=== PATIENT | female | born 1995 | race Caucasian/White ===

== ENCOUNTER 2020-08-06 16:27 | Emergency (ER) | payer MEDICAID, SELFPAY ==
[2020-08-06 16:28] VITALS: BP 103/62; PULSE 106; RESP 18; TEMP 36.9; O2SAT 100; BMI 20.1
--- NOTE | 2020-08-06 18:24 | ED.VISSUMM ---
- ER Visit Summary Date of Service: 08/06/20 Chief Complaint: Nausea, vomiting and mild right lower sided abdominal pain. History of Present Illness: The patient is a 24 F 9 weeks G4, P2 Ab1. Patient states that she is having a lot of nausea and vomiting with this . She denies any dysuria. She had a prior ultrasound done at [facility] showing a single live IUP with a subchorionic bleed. She states she is not been able rating down today. She denies any fever. No diarrhea. She has mild right-sided abdominal pain. No dysuria. No fever. No vaginal bleeding. Physical Examination: Well-appearing young female. Vital signs are stable and afebrile. She does not look septic or toxic. She does not look significantly dehydrated. She does have mildly moist mucous membranes. HEENT exam otherwise unremarkable. Neck nontender. Lungs clear to auscultation bilateral. Heart regular rhythm rate about 105 no murmur. Abdomen soft nontender normal bowel sounds no peritoneal signs. There is really no McBurney's point or right upper quadrant tenderness. No signs of obstruction. Soft. Positive bowel sounds. Patient is moving all 4 extremities. Calves are nontender without edema. Neurologically she is awake alert with no focal motor deficits. Test Results: White count 7. Hemoglobin 13. No bands chemistries normal normal creatinine gap. Nurses were unable to obtain heart tones. Patient states that her OBs office has difficulty with that also. UA is positive for 10-25 white cells 2+ bacteria a culture will be sent. Should be treated for UTI. Repeat exam patient is doing well at 8:12 PM. She and I went over all of her test results. She will be given a dose of Keflex p.o. prior to discharge. Emergency Department Course and Treatment: Patient treated with IV fluids IV Zofran. Screening labs being obtained. Her abdominal exam is benign. Treatment Plan: Flex 500 mg 3 times daily for the next 10 days for UTI. Urine culture sent. Zofran as needed for nausea. Follow-up with your ACCOUNTING INTERN. Return if worse. Disposition: discharge Impression: First trimester with nausea and vomiting Abdominal pain Urinary tract infection This note was generated with Go Dishation software. It may contain incorrect words, spelling, and punctuation that were not noted in review of the chart prior to signing ED Disposition - Plan for ED Patient: Referrals: Care Physician,No Primary [Primary Care Provider] -
[2020-08-06] MEDS: 0.9% Normal Saline 1,000 ML 1000 ML IV (18:50)
[2020-08-06] MEDS: Ondansetron 4 MG/2 ML Vial IV (18:50)
[2020-08-06 18:55] LABS: Red Blood Cells-Urine 0 SEEN /hpf (0-5)
[2020-08-06 18:58] LABS: Absolute Lymphocyte Count 2.13 X10^3/uL (0.83-4.51); Absolute Neutrophil Count 4.6 X10^3/uL (2.0-7.7); Basophil# 0.03 X10^3/uL; Basophil% 0.4 % (0-1); Eosinophil# 0.02 X10^3/uL; Eosinophils% 0.3 % (0-5); Hematocrit 39.1 % (37-47); Hemoglobin 13.7 g/dL (12.0-15.0); Lymphocyte # 2.13 X10^3/ul (4.0); Lymphocyte % 28.5 % (19-41); Mean Corpuscular Hgb 31.1 pg (27.0-32.0); Mean Corpuscular Volume 88.9 fL (81-99); Mean Platelet Vol. 10.4 fl (6.2-12.0); Monocyte# 0.71 X10^3/uL; Monocyte% 9.5 % (0-10); NRBC Flagged by Analyzer 0 % (0-5); Neutrophil # 4.57 X10^3/uL (2.7-7.7); Platelet Count 261 K/mm3 (150-450); RBC Distribution Width CV 13.2 % (11.6-14.6); RBC Distribution Width SD 42.6 fl (35.1-43.9); White Blood Count 7.5 K/mm3 (4.4-11.0)
[2020-08-06 19:25] LABS: Color, Urine Yellow (Yellow); Glucose, Dipstick Normal (Normal); Ketone-Dipstick Negative (Negative); Leukocyte Esterase-Dipstick 500 /ul (Negative); Nitrite-Dipstick Negative (Negative); Occult Blood-Urine 10 /ul (Negative); Protein-Dipstick Negative (Negative); Specific Gravity, Urine 1.025 (1.002-1.030); Urine Bilirubin Dipstick Negative (Negative); Urine Clarity Clear (Clear); Urine Urobilinogen Normal (Normal)
[2020-08-06 19:30] LABS: Anion Gap 6 (5-15); BUN 11 mg/dL (7-18); BUN/Creat Ratio 16.9 RATIO (10-20); Calcium,Total 9.7 mg/dL (8.5-10.1); Chloride 105 mmol/L (98-107); Creatinine, Serum 0.65 mg/dL (0.55-1.02); EST Glomerular Filtration Rate 119 mL/min (>60); Est Glom Filt Rate - Afr Amer 144 mL/min (>60); Estimated Creatinine Clearance 106.03 ml/min; Glucose 85 mg/dL (74-106); Potassium 3.5 mmol/L (3.5-5.1); Sodium Level 139 mmol/L (136-145)
[2020-08-06 19:43] LABS: Bacteria 2+ /hpf (None Seen); Mucous, Urine 2+ /hpf (<or=2+); Squamous Epithelial Cells - UA 0-5 SEEN /hpf (5-10); White Blood Cells 10-25 SEEN /hpf (0-5)
[2020-08-06 19:54] VITALS: RESP 18
--- NOTE | 2020-08-06 20:18 | ED.DEP ---
ED Disposition - Plan for ED Patient: Disposition: Home or Assisted Living Instructions: ED Urinary Tract Infections in Women Prescriptions: Cephalexin [Keflex] 750 mg PO Q8 #30 cap Prescription Printed Ondansetron [Zofran Odt] 4 mg PO Q8H PRN PRN #10 tab PRN Reason: Nausea Prescription Printed Referrals: Care Physician,No Primary [Primary Care Provider] - 3-5 Days Additional Instructions: Follow-up with your PASTING MACHINE OFFBEARER this week. Plenty of fluids and rest. Zofran as needed for nausea. Keflex which is the antibiotic for your urinary tract infection 1 pill 3 times a day for 10 days. We also sent a urine culture which her OB can follow-up on those results.
[2020-08-06] MEDS: Cephalexin 250 MG Capsule 500 MG PO (20:25)
[2020-08-06 20:28] VITALS: BP 121/71; PULSE 76; RESP 17; O2SAT 100
== END 2020-08-06 20:29 | disposition home or self-care (01) ==
PROVIDERS: Emergency Provider Emergency Medicine
DX: O23.41 Unspecified infection of urinary tract in pregnancy, first trimester (principal); O21.9 Vomiting of pregnancy, unspecified; O26.891 Other specified pregnancy related conditions, first trimester; R10.9 Unspecified abdominal pain; Z3A.09 9 weeks gestation of pregnancy
CPT/HCPCS: 80048; 81001; 85025; 87086; 87088; 96361; 96374; 99284; J7030; J2405

== ENCOUNTER → 2020-08-14 | Outpatient (CLI) | payer MEDICAID, SELFPAY ==
[2020-08-14 11:25] VITALS: BMI 20.5
[2020-08-14 13:34] LABS: Amphetamine Urine VISTA NEGATIVE (<1000 ng/mL); Barbiturate Urine VISTA NEGATIVE (< 200 ng/mL); Benzodiazepine Urine VISTA NEGATIVE (< 200 ng/mL); Cocaine Urine VISTA NEGATIVE (< 300 ng/mL); Ecstacy Urine VISTA NEGATIVE (< 500 ng/mL); Methadone Urine VISTA NEGATIVE (< 300 ng/mL); PCP Urine VISTA NEGATIVE (< 25 ng/mL); THC Urine VISTA NEGATIVE (< 50 ng/mL); Vista UDS pH Range 6
== END | disposition home or self-care (01) ==
LOC: LABSPEC 13:00
PROVIDERS: Referring Provider Obstetrics & Gynecology; Visit Provider Obstetrics & Gynecology
DX: Z34.80 Encounter for supervision of other normal pregnancy, unspecified trimester (principal)
CPT/HCPCS: 80307

== ENCOUNTER → 2020-08-16 14:02 | Outpatient (CLI) | payer MEDICAID, SELFPAY ==
[2020-08-14 11:25] VITALS: BMI 20.5
== END ==
PROVIDERS: Referring Provider Obstetrics & Gynecology; Visit Provider Obstetrics & Gynecology
DX: Z34.81 Encounter for supervision of other normal pregnancy, first trimester (principal)
CPT/HCPCS: 36415

== ENCOUNTER → 2020-09-05 14:19 | Outpatient (CLI) | payer MEDICAID, SELFPAY ==
[2020-08-21 14:16] VITALS: BMI 20.1
[2020-09-05] MEDS: 0.9% NaCl Peripheral Flush Adult/Peds IV (14:45)
[2020-09-05] MEDS: Dextrose 5%-Lactated Ringers 1,000 ML 999 ML IV (14:47)
[2020-09-05] MEDS: Ondansetron 4 MG/2 ML Vial IV (14:47)
[2020-09-05 14:51] VITALS: BP 100/70; PULSE 97; RESP 16; TEMP 37.1; O2SAT 100; BMI 20.1
[2020-09-05 15:52] VITALS: BP 105/66; PULSE 109; RESP 16; O2SAT 100
== END ==
PROVIDERS: Referring Provider Obstetrics & Gynecology; Visit Provider Obstetrics & Gynecology
DX: E86.0 Dehydration (principal)
CPT/HCPCS: 96361; 96374; A4216; J2405

== ENCOUNTER → 2020-09-16 | Outpatient (CLI) | payer MEDICAID, SELFPAY ==
[2020-09-16 15:22] VITALS: BMI 20.3
== END | disposition home or self-care (01) ==
LOC: LABSPEC 16:56
PROVIDERS: Referring Provider Obstetrics & Gynecology; Visit Provider Obstetrics & Gynecology
DX: O23.40 Unspecified infection of urinary tract in pregnancy, unspecified trimester (principal); Z3A.00 Weeks of gestation of pregnancy not specified
CPT/HCPCS: 87077; 87086; 87088

== ENCOUNTER → 2020-10-18 14:03 | Outpatient (CLI) | payer MEDICAID, SELFPAY ==
[2020-10-18 11:32] VITALS: BMI 21.2
== END ==
PROVIDERS: Referring Provider Obstetrics & Gynecology; Visit Provider Obstetrics & Gynecology
DX: O23.40 Unspecified infection of urinary tract in pregnancy, unspecified trimester (principal); Z3A.00 Weeks of gestation of pregnancy not specified
CPT/HCPCS: 87086; 87088

== ENCOUNTER → 2020-12-27 14:09 | Outpatient (CLI) | payer MEDICAID, SELFPAY ==
[2020-12-13 15:19] VITALS: BMI 21.2
[2020-12-27 14:52] LABS: Absolute Lymphocyte Count 1.37 X10^3/uL (0.83-4.51); Absolute Neutrophil Count 5.7 X10^3/uL (2.0-7.7); Basophil# 0.02 X10^3/uL; Basophil% 0.3 % (0-1); Eosinophils% 1.3 % (0-5); Hematocrit 31.8 % (37-47); Hemoglobin 10.2 g/dL (12.0-15.0); Lymphocyte # 1.37 X10^3/ul (0.83-4.51); Lymphocyte % 17.4 % (19-41); Mean Corp Hgb Conc 32.1 g/dL (32-36); Mean Corpuscular Hgb 28.3 pg (27.0-32.0); Mean Corpuscular Volume 88.1 fL (81-99); Mean Platelet Vol. 10.6 fl (6.2-12.0); Monocyte# 0.58 X10^3/uL; Monocyte% 7.4 % (0-10); NRBC Flagged by Analyzer 0 % (0-5); Neutrophil # 5.66 X10^3/uL (2.7-7.7); Neutrophil % 71.9 % (47-70); Platelet Count 183 K/mm3 (150-450); RBC Distribution Width CV 14.1 % (11.6-14.6); RBC Distribution Width SD 44.8 fl (35.1-43.9); Red Blood Count 3.61 M/mm3 (4.2-5.4); White Blood Count 7.9 K/mm3 (4.4-11.0)
[2020-12-27 15:31] LABS: Glucose Challenge Gest 1H 50g 85 mg/dL (70-140)
== END ==
PROVIDERS: Referring Provider Obstetrics & Gynecology; Visit Provider Obstetrics & Gynecology
DX: O26.891 Other specified pregnancy related conditions, first trimester (principal); Z13.1 Encounter for screening for diabetes mellitus; Z3A.00 Weeks of gestation of pregnancy not specified
CPT/HCPCS: 36415; 82950; 85025; 86850; 86900; 86901

== ENCOUNTER → 2021-02-14 | Outpatient (CLI) | payer MEDICAID, SELFPAY | END | disposition home or self-care (01) | LOC: LABSPEC 17:03 | PROVIDERS: Referring Provider Obstetrics & Gynecology; Visit Provider Obstetrics & Gynecology | DX: Z34.80 Encounter for supervision of other normal pregnancy, unspecified trimester (principal) | CPT/HCPCS: 87081 ==

== ENCOUNTER → 2021-03-13 | Outpatient (CLI) | payer MEDICAID, SELFPAY | END | disposition home or self-care (01) | LOC: LABSPEC 13:21 | PROVIDERS: Referring Provider Obstetrics & Gynecology; Visit Provider Obstetrics & Gynecology | DX: Z34.80 Encounter for supervision of other normal pregnancy, unspecified trimester (principal); U07.1 COVID-19 | CPT/HCPCS: 87635; U0005; U0003 ==

== ENCOUNTER 2021-03-17 07:10 | Inpatient (IN) | payer MEDICAID, SELFPAY ==
[2021-03-17] VITALS (56 sets, daily range): BP systolic 105–127; BP diastolic 58–76; PULSE 81–125; RESP 16–18; TEMP 36.2–36.8; O2SAT 98–100; BMI 29.1
[2021-03-17] MEDS: Lactated Ringers 1,000 ML 50 ML IV (07:45)
[2021-03-17] MEDS: Oxytocin 30 units/NS 500 ml 30 UNITS/500 ML IV.SOLN IV (07:56)
[2021-03-17 08:15] LABS: Absolute Lymphocyte Count 0.97 X10^3/uL (0.83-4.51); Absolute Neutrophil Count 6.1 X10^3/uL (2.0-7.7); Basophil# 0.02 X10^3/uL; Basophil% 0.2 % (0-1); Eosinophil# 0.18 X10^3/uL; Eosinophils% 2.2 % (0-5); Hematocrit 28.4 % (37-47); Hemoglobin 8.6 g/dL (12.0-15.0); Lymphocyte # 0.97 X10^3/ul (0.83-4.51); Lymphocyte % 11.7 % (19-41); Mean Corp Hgb Conc 30.3 g/dL (32-36); Mean Corpuscular Hgb 23.8 pg (27.0-32.0); Mean Corpuscular Volume 78.7 fL (81-99); Mean Platelet Vol. 10.3 fl (6.2-12.0); Monocyte# 0.87 X10^3/uL; Monocyte% 10.5 % (0-10); NRBC Flagged by Analyzer 0 % (0-5); Neutrophil # 6.08 X10^3/uL (2.7-7.7); Neutrophil % 73.6 % (47-70); Platelet Count 148 K/mm3 (150-450); RBC Distribution Width CV 16.4 % (11.6-14.6); RBC Distribution Width SD 46.7 fl (35.1-43.9); Red Blood Count 3.61 M/mm3 (4.2-5.4); White Blood Count 8.3 K/mm3 (4.4-11.0)
[2021-03-17] MEDS: fentaNYL 100 MCG/2 ML Ampul IV (11:17)
--- NOTE | 2021-03-17 11:48 | HP.PCM.OB_ITS ---
HPI - General General Date of Admission: 03/17/21 HPI Narrative ANJALI PIPER, is a 25 F who presents for IOL secondary to postdates, favorable cervix. she had a positive covid test last and does recall mild symptoms starting mid week (march 05) the week prior of headaches and nasal congestion. Maternal Data Information ARON Calculator Estimated Delivery Date Method Current WG Current Estimate 03/14/21 LMP (Certain) 40w 3d PFSH PFSH Medical History Anemia affecting Genital herpes affecting Home Medications docosahexaenoic acid 200 mg capsule 1 mg PO DAILY 08/14/20 [History Last Taken 03/15/21 22:00 1 tab] valacyclovir [Valtrex] 500 mg PO BID 03/17/21 [History Last Taken 03/16/21 22:00 500 mg] Allergy/AdvReac Type Severity Reaction Status Date / Time No Known Allergies Allergy Verified 03/13/21 11:21 Surgical History S/P left knee surgery Social History Smoking Status: Never smoker alcohol intake: never substance use type: does not use caffeine: Yes additional social history: - Terell-Works at [employer] Patient is stay at home mom History 4 Elective abortions Hx Para 2 Spontaneous abortions 1 Hx # Term Pregnancies Ectopic pregnancies Hx # Pregnancies Multiple births # of living children 2 Past Pregnancies Del. Date Name GA/Weeks Outcome Route Bth Weight Infant Gen Labor Lgth Anesthesia Del Locatn Provider FOB Unknown 2016 5 01/13/18 Cat 41 live - full term 7lbs 15.7oz Female epidural [place] Figueredo 02/20/19 Solomonaya 39 live - full term 8lbs 3.4oz [facility] Dr. Marina Figueredo Delivery Date: No notes to display Delivery Date: 01/13/18 No notes to display Delivery Date: 02/20/19 cord around neck with compression, anemic Anjali Castillo Visit Details Expected Delivery Route/Plan consider IOL at 39-40 with PPTL scheduled next day. Labor Preferences- labor support person: terell labor intervention preferences: pain management options preferred: Epidural cut cord/dad catch: yes : yes PP control planned: PPBTL - T19 12/27 discussed possible routes of delivery and associated risks: [] special requests: [] Plans covid vaccine: non immune counseled regarding risk of covid in vs vaccination and declined vaccination flu vaccine: declined tdap vaccine: declined rhogam: na LARC form signed: 12/27 movement and labor precautions reviewed. Problem list reviewed and updated with the most current plan of care details and appropriate orders placed. Relevant counseling for the gestational age provided. Continue routine care and follow up unless otherwise noted in visit notes/problem list details OB Flowsheet Initial Weight: 112 lb Date -?-?-?-?-?-?-?-?-?-?-?-?- EGA Weight BP Urine Prot -?-?-?-?-?-?-?-?-?-?-?-?- Glucose FHR FuHt Pres Dilation -?-?-?-?-?-?-?-?-?-?-?-?- Effaced St Visit Note 08/14/20 -?-?-?-?-?-?-?-?-?-?-?-?- 9w 5d 112 lb (+0 oz) 114/68 Negative -?-?-?-?-?-?-?-?-?-?-?-?- Negative 180 -?-?-?-?-?-?-?-?-?-?-?-?- GP - GERARD from [facility]. Dated by prior US. Having significant nausea - refill for zofran sent to pharmacy. 08/21/20 -?-?-?-?-?-?-?-?-?-?-?-?- 10w 5d 110 lb 2 oz (-1 lb 14 oz) 102/50 Negative -?-?-?-?-?-?-?-?-?-?-?-?- Negative 185 -?-?-?-?-?-?-?-?-?-?-?-?- GP - no cramping or bleeding. UCHE resolved. 09/16/20 -?-?-?-?-?-?-?-?-?-?-?-?- 14w 3d 111 lb 6 oz (-10 oz) 114/60 Negative -?-?-?-?-?-?-?-?-?-?-?-?- Negative 165 -?-?-?-?-?-?-?-?-?-?-?-?- SM- no vb crampi ng, nausea better 10/18/20 -?-?-?-?-?-?-?-?-?-?-?-?- 19w 0d 116 lb 6 oz (+4 lb 6 oz) 98/60 Negative -?-?--?-?-?-?-?-?-?-?-?-?- Negative 160 -?-?-?-?-?-?-?-?-?-?-?-?- GP - no ctx, LOF , VB, DFM. Anatomy scan next week 11/12/20 -?-?-?-?-?-?-?-?-?-?-?-?- 22w 4d 126 lb 4 oz (+14 lb 4 oz) 98/60 Negative -?-?-?-?-?-?-?-?-?-?-?-?- Negative 148 -?-?-?-?-?-?-?-?-?-?-?-?- MH-No VB, LOF. G ood FM. Reviewed nl anatomy scan. 12/13/20 -?-?-?-?-?-?-?-?-?-?-?-?- 27w 0d 135 lb (+23 lb) 100/56 Negative -?-?-?-?-?-?-?-?-?-?-?-?- Negative 150 27 -?-?-?-?-?-?-?-?-?-?-?-?- GP - no LOF, VB, DFM, ctx. GCT and rhogam next visit 12/27/20 -?-?-?-?-?-?-?-?-?-?-?-?- 29w 0d 138 lb 8 oz (+26 lb 8 oz) 110/70 Negative -?-?-?-?-?-?-?-?-?-?-?-?- Negative 145 29 -?-?-?-?-?-?-?-?-?-?-?-?- GP - no LOF, VB, DFM, ctx. Discussed PPBTL. T19 signed. GP - no LOF, VB, DFM, ctx. D iscussed PPBTL. T19 signed. 3rd [facility] labs nl 01/10/21 -?-?-?-?-?-?-?-?-?-?-?-?- 31w 0d 143 lb (+31 lb) 102/54 Negative -?-?-?-?-?-?-?-?-?-?-?-?- Negative 150 31 -?-?-?-?-?-?-?-?-?-?-?-?- GP - no LOF, VB, DFM, ctx. Denies complaints. 01/24/21 -?-?-?-?-?-?-?-?-?-?-?-?- 33w 0d 146 lb (+34 lb) 120/78 Negative -?-?-?-?-?-?-?-?-?-?-?-?- Negative 135 33 Cephalic -?-?-?-?-?-?-?-?-?-?-?-?- SM- no vb lof go od fm no reulga rctx 02/07/21 -?-?-?-?-?-?-?-?-?-?-?-?- 35w 0d 149 lb (+37 lb) 104/62 Negative -?-?-?-?-?-?-?-?-?-?-?-?- Negative 135 35 Cephalic -?-?-?-?-?-?-?-?-?-?-?-?- SM- no vb lof go od fm no reuglar ctx 02/14/21 -?-?-?-?-?-?-?-?-?-?-?-?- 36w 0d 151 lb (+39 lb) 100/60 Negative -?-?-?-?-?-?-?-?-?-?-?-?- Negative 140 36 Cephalic 2 -?-?-?-?-?-?-?-?-?-?-?-?- 50 -3 GP - no LO F, VB, DFM, regular ctx. GBS done today. 02/20/21 -?-?-?-?-?-?-?-?-?-?-?-?- 36w 6d 154 lb 4 oz (+42 lb 4 oz) 120/70 Negative -?-?-?-?-?-?-?-?-?-?-?-?- Negative 140 37 Cephalic 2 -?-?-?-?-?-?-?-?-?-?-?-?- 50 -3 GP - no LO F, VB, ctx. Reports DFM last 24h - NST done in office and is reactive 02/27/21 -?-?-?-?-?-?-?-?-?-?-?-?- 37w 6d 156 lb 6 oz (+44 lb 6 oz) 110/60 Negative -?-?-?--?-?-?-?-?-?-?-?-?- Negative 140 38 Cephalic 2 -?-?-?-?-?-?-?-?-?-?-?-?- SM- no vb lof go od fm no regular ctx feels pelvic pressure 03/03/21 -?-?-?--?-?-?-?-?-?-?-?-?- 38w 3d 159 lb (+47 lb) 104/70 Negative -?-?-?-?-?-?-?-?-?-?-?-?- Negative 140 38 Cephalic 2 -?-?-?-?-?-?-?-?-?-?-?--?- SM- no vb lof go od fm n oregular ctx, repeat cervical exam next week and consider IOL if favorable smith score 03/13/21 -?-?-?-?-?-?-?-?-?-?-?-?- 39w 6d 160 lb 6 oz (+48 lb 6 oz) 120/86 Negative -?-?-?-?-?-?-?-?-?-?-?-?- Negative 140 40 Cephalic 2 -?-?-?-?-?-?-?-?-?-?-?-?- 50 -2 GP - no LO F, VB, DFM, ctx. IOL scheduled for 03/1703/17/21 -?-?-?-?-?-?-?-?-?-?-?-?- 40w 3d 159 lb 6.307 oz (+47 lb 6.307 oz) -?-?-?-?--?-?-?-?-?-?-?-?- -?-?-?-?-?-?-?-?-?-?-?-?- Vital Signs Vital Signs Vital Signs: Weight Weight: 159 lb 6.307 oz Body Mass Index (BMI) 29.1 Labs Labs Labs: Blood Type O NEGATIVE Antibody Screen NEGATIVE Hct 28.4 % (37-47) L Hgb 8.6 g/dL (12.0-15.0) L Glucose 1 Hr 50 gm 85 mg/dL (70-140) Miscellaneous Test Assessment & Plan (1) Sterilization: COMMENT: titel 19 signed, consider IOL 39-40 week with PPTL scheduled the next day (2) Anemia affecting : COMMENT: iron added (3) UTI (urinary tract infection), affecting care of mother, antepartum: COMMENT: Treated with Cephalexin, repeat culture neg (4) Rh negative status during : QUALIFIERS: Trimester: first trimester Qualified Code(s): O26.891 - Other specified related conditions, first trimester COMMENT: O neg- Rhogam PRN and at 28 weeks. Given 12/27 (5) Genital herpes affecting : QUALIFIERS: Trimester: first trimester Qualified Code(s): O98.311 - Other infections with a predominantly sexual mode of transmission complicating , first trimester COMMENT: prophylaxis being given (6) Supervision of other normal : COMMENT: PRR; ARON: 03/14/21, Austin motley PC: Mireya Shelton (7) : QUALIFIERS: Weeks of gestation: 39 weeks Qualified Code(s): Z3A.39 - 39 weeks gestation of COMMENT: GBS negative, genetics- low risk and carrier- negative in previous , 10/21 anatomy PLAN: Patient presents IOL, plan management for with pitocin/AROM. Pain management: plans epidural. GBS negative. Management of any complications: discussed previous covid positive test. due to mild symptoms that started march 05, she is out of quarantine as of 03/15. no new symptoms. I have reviewed the [facility] and made any clinically relevant updates.
--- NOTE | 2021-03-17 11:48 | PCM.HP.OB ---
HPI - General General Date of Admission: 03/17/21 HPI Narrative ANJALI PIPER, is a 25 F who presents for IOL secondary to postdates, favorable cervix. she had a positive covid test last and does recall mild symptoms starting mid week (march 05) the week prior of headaches and nasal congestion. Maternal Data Information ARON Calculator Estimated Delivery Date Method Current WG Current Estimate 03/14/21 LMP (Certain) 40w 3d PFSH PFSH Medical History Anemia affecting Genital herpes affecting Home Medications docosahexaenoic acid 200 mg capsule 1 mg PO DAILY 08/14/20 [History Last Taken 03/15/21 22:00 1 tab] valacyclovir [Valtrex] 500 mg PO BID 03/17/21 [History Last Taken 03/16/21 22:00 500 mg] Allergy/AdvReac Type Severity Reaction Status Date / Time No Known Allergies Allergy Verified 03/13/21 11:21 Surgical History S/P left knee surgery Social History Smoking Status: Never smoker alcohol intake: never substance use type: does not use caffeine: Yes additional social history: - Terell-Works at [employer] Patient is stay at home mom History 4 Elective abortions Hx Para 2 Spontaneous abortions 1 Hx # Term Pregnancies Ectopic pregnancies Hx # Pregnancies Multiple births # of living children 2 Past Pregnancies Del. Date Name GA/Weeks Outcome Route Bth Weight Infant Gen Labor Lgth Anesthesia Del Locatn Provider FOB Unknown 2016 5 01/13/18 Cat 41 live - full term 7lbs 15.7oz [place] 02/20/19 Solomonaya 39 live - full term 8lbs 3.4oz [place] [facility] Dr. Marina Figueredo Delivery Date: No notes to display Delivery Date: 01/13/18 No notes to display Delivery Date: 02/20/19 cord around neck with compression, anemic Anjali Castillo Visit Details Expected Delivery Route/Plan consider IOL at 39-40 with PPTL scheduled next day. Labor Preferences- labor support person: terell labor intervention preferences: pain management options preferred: Epidural cut cord/dad catch: yes : yes PP control planned: PPBTL - T19 12/27 discussed possible routes of delivery and associated risks: [] special requests: [] Plans covid vaccine: non immune counseled regarding risk of covid in vs vaccination and declined vaccination flu vaccine: declined tdap vaccine: declined rhogam: na LARC form signed: 12/27 movement and labor precautions reviewed. Problem list reviewed and updated with the most current plan of care details and appropriate orders placed. Relevant counseling for the gestational age provided. Continue routine care and follow up unless otherwise noted in visit notes/problem list details OB Flowsheet Initial Weight: 112 lb Date <del>?</del> EGA Weight BP Urine Prot <del>?</del> Glucose FHR FuHt Pres Dilation <del>?</del> Effaced St Visit Note 08/14/20 <del>?</del> 9w 5d 112 lb (+0 oz) 114/68 Negative <del>?</del> Negative 180 <del>?</del> GP - [facility]ER[facility] Dated by prior US. Having significant nausea - refill for zofran sent to pharmacy. 08/21/20 <del>?</del> 10w 5d 110 lb 2 oz (-1 lb 14 oz) 102/50 Negative <del>?</del> Negative 185 <del>?</del> GP - no cramping or bleeding. UCHE resolved. 09/16/20 <del>?</del> 14w 3d 111 lb 6 oz (-10 oz) 114/60 Negative <del>?</del> Negative 165 <del>?</del> SM- no vb cramping, nausea better 10/18/20 <del>?</del> 19w 0d 116 lb 6 oz (+4 lb 6 oz) 98/60 Negative <del>?</del> Negative 160 <del>?</del> GP - no ctx, LOF, VB, DFM. Anatomy scan next week 11/12/20 <del>?</del> 22w 4d 126 lb 4 oz (+14 lb 4 oz) 98/60 Negative <del>?</del> Negative 148 <del>?</del> MH-No VB, LOF. Good FM. Reviewed nl anatomy scan. 12/13/20 <del>?</del> 27w 0d 135 lb (+23 lb) 100/56 Negative <del>?</del> Negative 150 27 <del>?</del> GP - no LOF, VB, DFM, ctx. GCT and rhogam next visit 12/27/20 <del>?</del> 29w 0d 138 lb 8 oz (+26 lb 8 oz) 110/70 Negative <del>?</del> Negative 145 29 <del>?</del> GP - no LOF, VB, DFM, ctx. Discussed PPBTL. T19 signed. GP - no LOF, VB, DFM, ctx. Discussed PPBTL. T19 signed. 3rd tri labs nl 01/10/21 <del>?</del> 31w 0d 143 lb (+31 lb) 102/54 Negative <del>?</del> Negative 150 31 <del>?</del> GP - no LOF, VB, DFM, ctx. Denies complaints. 01/24/21 <del>?</del> 33w 0d 146 lb (+34 lb) 120/78 Negative <del>?</del> Negative 135 33 Cephalic <del>?</del> SM- no vb lof good fm no reulga rctx 02/07/21 <del>?</del> 35w 0d 149 lb (+37 lb) 104/62 Negative <del>?</del> Negative 135 35 Cephalic <del>?</del> SM- no vb lof good fm no reuglar ctx 02/14/21 <del>?</del> 36w 0d 151 lb (+39 lb) 100/60 Negative <del>?</del> Negative 140 36 Cephalic 2 <del>?</del> 50 -3 GP - no LOF, VB, DFM, regular ctx. GBS done today. 02/20/21 <del>?</del> 36w 6d 154 lb 4 oz (+42 lb 4 oz) 120/70 Negative <del>?</del> Negative 140 37 Cephalic 2 <del>?</del> 50 -3 GP - no LOF, VB, ctx. Reports DFM last 24h - NST done in office and is reactive 02/27/21 <del>?</del> 37w 6d 156 lb 6 oz (+44 lb 6 oz) 110/60 Negative <del>?</del> Negative 140 38 Cephalic 2 <del>?</del> SM- no vb lof good fm no regular ctx feels pelvic pressure 03/03/21 <del>?</del> 38w 3d 159 lb (+47 lb) 104/70 Negative <del>?</del> Negative 140 38 Cephalic 2 <del>?</del> SM- no vb lof good fm n oregular ctx, repeat cervical exam next week and consider IOL if favorable smith score 03/13/21 <del>?</del> 39w 6d 160 lb 6 oz (+48 lb 6 oz) 120/86 Negative <del>?</del> Negative 140 40 Cephalic 2 <del>?</del> 50 -2 GP - no LOF, VB, DFM, ctx. IOL scheduled for 03/1703/17/21 <del>?</del> 40w 3d 159 lb 6.307 oz (+47 lb 6.307 oz) <del>?</del> <del>?</del> Vital Signs Vital Signs Vital Signs: Weight Weight: 159 lb 6.307 oz Body Mass Index (BMI) 29.1 Labs Labs Labs: Blood Type O NEGATIVE Antibody Screen NEGATIVE Hct 28.4 % (37-47) L Hgb 8.6 g/dL (12.0-15.0) L Glucose 1 Hr 50 gm 85 mg/dL (70-140) Miscellaneous Test Assessment & Plan (1) Sterilization: COMMENT: amilcar 19 signed, consider IOL 39-40 week with PPTL scheduled the next day (2) Anemia affecting : COMMENT: iron added (3) UTI (urinary tract infection), affecting care of mother, antepartum: COMMENT: Treated with Cephalexin, repeat culture neg (4) Rh negative status during : QUALIFIERS: Trimester: first trimester Qualified Code(s): O26.891 - Other specified related conditions, first trimester COMMENT: O neg- Rhogam PRN and at 28 weeks. Given 12/27 (5) Genital herpes affecting : QUALIFIERS: Trimester: first trimester Qualified Code(s): O98.311 - Other infections with a predominantly sexual mode of transmission complicating , first trimester COMMENT: prophylaxis being given (6) Supervision of other normal : COMMENT: PRR; ARON: 03/14/21, [place] PC: Mireya Shelton (7) : QUALIFIERS: Weeks of gestation: 39 weeks Qualified Code(s): Z3A.39 - 39 weeks gestation of COMMENT: GBS negative, genetics- low risk and carrier- negative in previous , 10/21 anatomy PLAN: Patient presents IOL, plan management for with pitocin/AROM. Pain management: plans epidural. GBS negative. Management of any complications: discussed previous covid positive test. due to mild symptoms that started march 05, she is out of quarantine as of 03/15. no new symptoms. I have reviewed the [facility] and made any clinically relevant updates.
[2021-03-17] MEDS: Lactated Ringers 500 ML 999 ML IV ×2 (12:12→13:00)
[2021-03-17] MEDS: fentaNYL-bupivacaine (epidural) 100 ML BAG EPIDURAL (13:05)
[2021-03-17] MEDS: Oxytocin 30 units/NS 500 ml 30 UNITS/500 ML IV.SOLN 334 UNITS IV (17:11)
[2021-03-17] MEDS: Methylergonovine 0.2 MG/ML Ampul IM (17:18)
--- NOTE | 2021-03-17 17:21 | OP.PCM_ITS ---
Assessment & Plan (1) Anemia affecting : COMMENT: iron added (2) UTI (urinary tract infection), affecting care of mother, antepartum: COMMENT: Treated with Cephalexin, repeat culture neg (3) Rh negative status during : QUALIFIERS: Trimester: first trimester Qualified Code(s): O26.891 - Other specified related conditions, first trimester COMMENT: O neg- Rhogam PRN and at 28 weeks. Given 12/27 (4) Genital herpes affecting : QUALIFIERS: Trimester: first trimester Qualified Code(s): O98.311 - Other infections with a predominantly sexual mode of transmission complicating , first trimester COMMENT: prophylaxis being given (5) Supervision of other normal : COMMENT: PRR; ARON: 03/14/21, Austin motley PC: Mireya Shelton (6) : QUALIFIERS: Weeks of gestation: 39 weeks Qualified Code(s): Z3A.39 - 39 weeks gestation of COMMENT: GBS negative, genetics- low risk and carrier- negative in previous , 10/21 nl anatomy (7) Vaginal delivery: COMMENT: IOL SM severe shoulder dystocia tiesha Avila (8) Shoulder dystocia during labor and delivery: COMMENT: 90 secs, mc hill, suprapubic, woodscrew, suprapubic, delivery posterior arm (left arm) Maternal Data Information ARON Calculator Estimated Delivery Date Method Current WG Current Estimate 03/14/21 LMP (Certain) 40w 3d Vaginal Delivery Maternal Presentation Maternal Presentation: Elective Induction (postdates, favorable cervix, plan PPTL the next day) Maternal Presentation: 25-year-old at 40 weeks 3 days presents for induction of labor secondary to postdates and maternal request. Patient desires sterilization the next day. Type of Induction: Pitocin Operative Information Date of Procedure: 03/17/21 Pre-Operative Diagnosis: Induction of labor, postdates Post-Operative Diagnosis: Same Surgery / Procedure Performed: Spontaneous Vaginal Delivery Type of Anesthesia: Epidural Drain: [place] to straight drain Estimated Blood Loss: 300 Fluids Replaced: Crystalloid Findings Description of Procedure: Patient was found to be completely dilated and +2 station. Patient pushed with 1 contraction in the head precipitously delivered to the nose and then with an additional push delivered all the way. Nares and mouth were suctioned and a tight nuchal cord x1 was encountered but unable to be loosened or reduced. Gentle downward traction on the head with the left shoulder being anterior was performed and it was found that a shoulder dystocia was encountered. Cristin maneuver was performed followed by suprapubic. This was unsuccessful and therefore manual rotation of the right shoulder to the anterior via wood screw and then suprapubic and Cristin were repeated to attempt to reduce the right shoulder that was now anterior. The nuchal cord was loosened up a little bit more but still unable to be reduced over or through but the shoulders were felt to be the rate limiting factor. The left posterior arm was attempted to be swept anteriorly but there was not enough room and full extension of the arm to be able to reduce it and deliver it. Bilateral index fingers were placed in the axilla of the left arm that was posterior and outward and downward traction was applied to deliver the posterior shoulder which was successful but an audible pop was heard. After this the left arm was able to be swept out and delivered and the tight nuchal cord was clamped and cut on the perineum and the rest of the infant was delivered onto the abdomen. total duration was 90 seconds. Presentation: SEB Amniotic Membrane Rupture Type: Artificial Amniotic Fluid Description: Clear Placental Delivery Description: Spontaneous Placenta Disposition: [facility] Cord Entanglement: Around neck x 1, tight (cut on perineum after delivery of posterior arm) Nuchal Cord Compression: With compression Cord Gases: ABG and VBG Infant A Gender: Male Delayed Cord Clamping: No Post Vaginal Delivery Medications Given After Delivery: IV Pitocin and IM Methergin Episiotomy Description: None Laceration: None Complication Complications: - (severe shoulder dystocia) Procedures Urinary/Genital [id number]: [id number] Vaginal Delivery+ Care([facility])
[2021-03-17] MEDS: Acetaminophen 500 MG Tablet 1000 MG PO (20:50)
--- NOTE | 2021-03-17 23:25 | NURSING ---
pt reporting severe discomfort to epidural site. dressing remains dry and intact. site tender upon palpation. pt also reporting shooting pain into lower back, tylenol ineffective and pt declined naproxen. Brenden BEARDEN called and updated on findings and made aware epidural was left in place due to scheduled tubal tomorrow in main OR around 3:45pm. Plan per Brenden CLEANING SUPERVISOR is for RN to d/c epidural cath and he will update surgery team tomorrow plan of care reviewed with pt and fob. pt agreeable to removing epidural catheter at this time. pt stated i may cancel the procedure tomorrow if im still this uncomfortable epidural cath removed with blue tip intact. pt tolerated well
--- NOTE | 2021-03-17 23:33 | NURSING ---
pt reporting pain to abd. fundus noted to be firm at U but displaced to the left. pt denies feeling urge to void. lochia small. bladder scanner used, approximated 408 cc. pt assisted up to restroom voided 200cc with out difficulty. pt then returned to bed, fundus firm at U and midline. lochia small. pt reports feeling better after urinating. denies further needs
[2021-03-18] VITALS (8 sets, daily range): BP systolic 97–119; BP diastolic 61–69; PULSE 74–90; RESP 16–18; TEMP 36.1–37; O2SAT 99
[2021-03-18] MEDS: Benzocaine/Lanolin/Aloe Vera 1 SPRAY EACH TOPICAL (00:39)
[2021-03-18] MEDS: Naproxen 500 MG Tablet PO ×2 (00:39→08:37)
[2021-03-18] MEDS: Acetaminophen 500 MG Tablet 1000 MG PO ×2 (04:09→14:21)
--- NOTE | 2021-03-18 09:03 | PCM.DC ---
Discharge Instructions Diet Discharge Diet: No restrictions Activity Discharge Activity: Return to Normal Activity, May Not Drive (while taking narcotic pain medications.) and May Shower May resume sexual activity in: 4-6 weeks Dressing / Incision Call your doctor if your incision/area has: Continuous Slow Oozing, Sudden Increased Bleeding, Increased Pain/ Swelling, Increased Redness and Foul Smelling Discharge Follow Up Care Please Follow Up With: Ana Argueta MD When: Call [phone] to make an appointment with your doctor in 6 weeks. If you had elevated blood pressure or 4th degree laceration, you will need to be seen in 2 weeks. Test Results: Test results from this visit will be discussed in further detail at your follow-up appointment, if applicable. Discharge Plan Admission Admit Date/Time: 03/17/21 07:10 Primary Reason for Your Visit: vaginal delivery Attending Provider: Ana Argueta Primary Care Provider: Care Physician,No Primary Discharge Orders/Prescriptions Prescriptions: New oxycodone-acetaminophen [Endocet] 5-325 mg tablet 1 tab PO Q4H PRN (Reason: pain) 7 Days Qty: 20 RF: 0 ibuprofen [ibuprofen] 600 MG tablet 600 mg PO Q6H PRN PRN (Reason: pain) Qty: 30 RF: 0 Continued DHA 200 mg capsule 1 mg PO DAILY RF: 0 valacyclovir [Valtrex] 500 mg tablet 500 mg PO BID RF: 0 Referrals / Follow Up: Care Physician,No Primary [Primary Care Provider] -
--- NOTE | 2021-03-18 09:20 | PCM.PN.OB ---
Subjective Subjective Patient doing well without complaints. Tolerating PO. Ambulating and voiding without difficulty. feeding well. Denies chest pain, shortness of breath, calf pain/swelling, fevers, chills, lightheadedness. co lower pelvic pain and back pain Objective Data Objective Data Vital Signs: Vital Signs Temp Pulse Resp BP Pulse Ox 97.1 F L 82 18 119/69 99 03/18/21 07:50 03/18/21 07:50 03/18/21 07:50 03/18/21 07:50 03/18/21 07:50 Oxygen Delivery Method Room Air Weight: 159 lb 6.307 oz Body Mass Index (BMI) 29.1 Intake & Output: Intake and Output for Last 24 Hours 03/16/21 03/17/21 03/18/21 23:59 23:59 23:59 Intake Total 3000.86 / 3000.86 Output Total 1000 / 1000 Balance 2000.86 / 2000.86 Lab / Micro Data Result Diagrams: 03/17/21 07:45 Labs: Laboratory Results - last 24 hr 03/17/21 07:45: Blood Type O NEGATIVE, Antibody Screen NEGATIVE 03/17/21 20:00: Screen NEGATIVE, Baby's Blood Type O POSITIVE, Baby's JARVIS NEGATIVE ROS Constitutional Constitutional: Reports systems reviewed and no addt'l complaints, except as documented Cardiovascular Cardiovascular: Reports systems reviewed and no addt'l complaints, except as documented Respiratory/Chest Respiratory/Chest: Reports systems reviewed and no addt'l complaints, except as documented Gastrointestinal Gastrointestinal: Reports systems reviewed and no addt'l complaints, except as documented Physical Exam Const alert, oriented x3 and no apparent distress HEENT Head and Scalp: atraumatic Resp normal respiratory effort GI soft to palpation and non-tender Bimanual Exam - Vag & Uterus: uterus non-tender Uterus Palpation: uterus fundus firm (below Umbilicus) Assessment & Plan (1) Vaginal delivery: COMMENT: IOL SM severe shoulder dystocia humeral fracture 9lb 3 oz boy [place] (2) Shoulder dystocia during labor and delivery: COMMENT: 90 secs, [place], suprapubic, [place], suprapubic, delivery posterior arm (left arm) (3) Sterilization: COMMENT: amilcar 19 signed, plan laparosocpic BS 6+ weeks (4) Rh negative status during : QUALIFIERS: Trimester: first trimester Qualified Code(s): O26.891 - Other specified related conditions, first trimester COMMENT: O neg- Rhogam PRN and at 28 weeks. Given 12/27 PLAN: s/p PPD # 1 1. routine post delivery care 2. breast feeding- support given 3. rh negative- rhogam PRN 4. rubella immune 5. severe shoulder dystocia- infant with humeral fracture, was 1 lb larger than last delivery. discussed that if any future deliveries recommend . patient still requesting sterilization but wants to wait until 6 weeks . support and information given.
== END 2021-03-18 17:55 | disposition home or self-care (01) | DRG 560 ==
PROVIDERS: Admitting Provider Obstetrics & Gynecology; Visit Provider Obstetrics & Gynecology
DX: O48.0 Post-term pregnancy (principal); Z37.0 Single live birth; O98.32 Other infections with a predominantly sexual mode of transmission complicating childbirth; A60.00 Herpesviral infection of urogenital system, unspecified; Z3A.40 40 weeks gestation of pregnancy; Z79.899 Other long term (current) drug therapy; O99.02 Anemia complicating childbirth; D64.9 Anemia, unspecified; Z86.16 Personal history of COVID-19; O69.1XX0 Labor and delivery complicated by cord around neck, with compression, not applicable or unspecified; O62.3 Precipitate labor; O66.0 Obstructed labor due to shoulder dystocia
CPT/HCPCS: 59025; 59050; 85025; 85461; 86850; 86900; 86901; 90384; 99218; J7120; G0378; J2790

== ENCOUNTER → 2021-05-01 | Outpatient (CLI) | payer MEDICAID, SELFPAY ==
[2021-05-06 12:45] LABS: HPV Reflexed? NOT INDICATED
== END | disposition home or self-care (01) ==
LOC: LABSPEC 16:39
PROVIDERS: Referring Provider Obstetrics & Gynecology; Visit Provider Obstetrics & Gynecology
DX: Z12.4 Encounter for screening for malignant neoplasm of cervix (principal)
CPT/HCPCS: 88175; G0145

== ENCOUNTER 2022-06-22 10:36 | Emergency (ER) | payer MEDICAID, SELFPAY ==
[2022-06-22 10:38] VITALS: BP 117/79; PULSE 130; RESP 17; TEMP 35.4; O2SAT 99; BMI 21.0
[2022-06-22] MEDS: Mag Hydrox/Al Hydrox/Simeth 30 ML UDC PO (11:51)
--- NOTE | 2022-06-22 12:19 | ED.VIS.GI ---
HPI HPI - GI History of Present Illness Chief Complaint: Abd Pain Detail of Chief Complaint: Epigastric pain and other symptoms Informant: patient Abdominal Pain/Flank Pain Onset: Days Timing: Intermittent Quality: Aching and - (Pressure sensation epigastric area radiating into the chest) Location: Epigastric Current Severity: Mild Maximum Severity: Moderate Worsened by: - (Worse when her son lies on her when she breast-feeds) Relieved by: Nothing Nausea/Vomiting/Emesis GI Symptom: Negative for Nausea or Vomiting Diarrhea/Melena/Hematochezia GI Symptom: Negative for Diarrhea, Melena or Hematochezia Associated Symptoms Associated Symptoms: Negative for Dysuria, Frequency, Hematuria or Urgency LMP: 3 weeks ago. Narrative Narrative: Patient is 86-year-old who is on control. She is presently on the iron pills. She denies history of VTE. Denies leg pain, swelling discoloration. She does complain of numbness, shortness of breath, discomfort in the epigastric and chest and stiffness of her fingers. She states the pain in her abdomen is worse when her son lies on her. She denies burning sensation in her chest. She denies sour eructation. She denies intolerance to greasy or fried foods. There is a family history of cholelithiasis. She denies radiation of the pain to her back. Patient denies headache, visual, ocular auditory symptoms. Patient denies vomiting or diarrhea. Patient denies black or maroon-colored stool. Patient denies change in color, consistency or caliber of her stool. Patient denies gynecologic or urologic symptoms. She has had 3 pregnancies. She states she had complication with delivery of one of her children. Prior similar symptoms: No Recent Illness/Hospitalization: No [facility] Medical History Anemia affecting Genital herpes affecting Physical exam, pre-employment Vaginal delivery Home Medications norethindrone (contraceptive) 0.35 mg tablet (Ortho Micronor) 0.35 mg PO DAILY #28 tabs 05/01/21 [Rx Last Taken Unknown] omeprazole 40 mg capsule,delayed release 40 mg PO DAILY #30 caps 06/22/22 [Rx Last Taken Unknown] Allergy/AdvReac Type Severity Reaction Status Date / Time No Known Allergies Allergy Verified 06/22/22 10:37 Family History (Updated 06/22/22 @ 14:[address] Ramón Alfonso MD) Mother Cholelithiasis Surgical History S/P left knee surgery Social History (Updated 06/22/22 @ 14:[address] Ramón Alfonso MD) household members: children Smoking Status: Never smoker alcohol intake: never substance use type: does not use caffeine: Yes additional social history: - [employer]-Works at [employer] Patient is stay at home mom ROS ROS ED Constitutional Constitutional ED: Denies chills, fever(s), subjective, sweats or weight loss ENT ENT ED: Denies ear pain, rhinorrhea or sore throat Cardiovascular Cardiovascular: Reports chest pain and palpitations; Denies orthopnea, paroxysmal nocturnal dyspnea or racing heartbeat Respiratory/Chest Respiratory/Chest: Reports dyspnea; Denies cough, dyspnea on exertion, orthopnea or paroxysmal nocturnal dyspnea Gastrointestinal Gastrointestinal: Reports abdominal pain; Denies constipation, diarrhea, melena, nausea or vomiting Genitourinary Genitourinary ED: Denies dysuria, hematuria or urinary frequency Musculoskeletal Musculoskeletal: Denies arthralgias, back pain, myalgias or neck pain Neurologic Neurologic: Denies headache(s) or paresthesias Psychiatric Psychiatric: Reports anxiety Endocrine Endocrinology: Denies polydipsia, polyphagia or polyuria Hematologic/Lymphatic Hematologic/Lymphatic: Denies easy bleeding or easy bruising Allergic/Immunologic Allergic/Immunologic ED: Denies mouth swelling or tongue swelling EXAM Physical Exam Const Vital Signs: 06/22/22 10:38 06/22/22 12:37 Temperature 95.7 F L Temperature Source Temporal Pulse Rate 130 H 98 Respiratory Rate 17 16 Blood Pressure 117/79 111/71 Blood Pressure Mean 91 84 Pulse Ox 99 97 Oxygen Delivery Method Room Air Room Air Positive well nourished and well developed General Appearance ED: well developed and NAD; Negative for pallor HEENT Reports TM's clear and dry mucous membranes HEENT Narrative: Bilateral Chvostek sign. Nares are patent. Ears normal. Posterior pharynx out erythema or exudate. Uvula is midline. Tympanic Membrane ED: Yes TM's clear Mouth ED: Yes dry mucous membranes Mouth: dry mucous membranes Eyes PERRL and EOMs intact bilaterally General Eye ED: Negative for pale conjunctiva or scleral icterus Neck no lymphadenopathy, supple and no JVD Neck Narrative: Trachea is midline. There is no inspiratory or expiratory stridor noted. Resp normal respiratory effort and clear to auscultation bilaterally Cardio regular rate, regular rhythm, S1 normal heart sound, S2 normal heart sound and no murmurs GI non-distended and no masses; Negative for non-tender GI Narrative: Negative clinical Mora sign Auscultation: hypoactive bowel sounds Palpation: soft and tender epigastric; Negative for guarding, rigid, hepatomegaly, splenomegaly, hernia, mass or pulsatile mass Back/Spine no CVA tenderness Cervical Spine: Negative for cervical spine tenderness Thoracic Spine / Upper Back: Negative for thoracic spinal tenderness Lumbar Spine / Lower Back: Negative for lumbar spinal tenderness Extremity full ROM Extremity Narrative: There is no asymmetry, swelling, discoloration, leg vein distention, palpable cords or tenderness along the distribution of the deep venous system. General Extremety ED: Negative for edema or tenderness General Extremity: Negative for edema Neuro CN's II-XII intact bilaterally, moves all extremities and no sensory deficits noted Sensorium / Orientation: alert Psych mental status grossly normal and thought process normal Skin no wounds General Skin Exam: Negative for jaundice or pallor Lesions: no lesions Rashes: no rashes MDM MDM MDM Narrative Medical decision making narrative: Patient's history and physical consistent with esophagitis versus gastritis versus reflux. She was treated with GI cocktail. 50 minutes after she received a GI cocktail I was informed that she is complaining of shortness of breath, tingling having trouble moving her hands. She was assessed at that time, 1218. Patient has bilateral's Chvostek sign and carpal spasm consistent with hyperventilation. She is tachycardic on the monitor with a rate of 120. Patient states after she got the GI cocktail she had sharp left upper quadrant pain. When she was reassessed at 1435. She still has epigastric pain. Based on history and physical suspect this is due to reflux or esophagitis or gastritis. Will place on omeprazole and she was for Dr. Salvador since she does not have a primary care physician. Once patient was relaxed heart rate was 89 on the monitor. Patient is PERC negative. Reason D-dimer was not obtained. Rhythm Strip Rhythm Strip: Sinus Rhythm Rate: 89 Ectopy: None Discharge Plan Triage Chief Complaint: Abd Pain ED Provider: Ramón Alfonso Dx/Rx/DC Orders Clinical Impression: Acute hyperventilation syndrome, Acute epigastric pain Prescriptions: New omeprazole 40 mg capsule,delayed release(DR/EC) 40 mg PO DAILY Qty: 30 0RF No Action norethindrone (contraceptive) [Ortho Micronor] 0.35 mg tablet 0.35 mg PO DAILY Qty: 28 12RF Rx Instructions: start day 1 of menstrual cycle Primary Care Provider: Care Physician,No Primary Referrals: Venessa Salvador DO [Med Staff - [place]] - 1-2 Weeks Care Physician,No Primary [Primary Care Provider] - Disposition Disposition: Home, Self Care
[2022-06-22 12:37] VITALS: BP 111/71; PULSE 98; RESP 16; O2SAT 97
== END 2022-06-22 15:15 | disposition home or self-care (01) ==
PROVIDERS: Emergency Provider Emergency Medicine; Visit Provider Emergency Medicine
DX: R10.13 Epigastric pain (principal); F45.8 Other somatoform disorders
CPT/HCPCS: 99284

== ENCOUNTER → 2023-07-11 | Outpatient (CLI) | payer MEDICAID, SELFPAY ==
[2023-07-11 14:19] LABS: Mucous, Urine 0 SEEN /hpf (<or=2+); Red Blood Cells-Urine 0 SEEN /hpf (0-5)
--- OUTSIDE RECORDS SUMMARY | 2023-07-11 14:22 | XMS RPT_ITS | CCD ---
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 in your abdomen. You have nausea or vomiting that lasts for more than one day. You have leg pain. This information is not intended to replace advice given to you by your health care provider. Make sure you discuss any questions you have with your health care provider. Document Released: 05/17/2006 Document Revised: 04/29/2018 Document Reviewed: 11/02/2016 [employer] Patient Education 2020 [employer]. Follow Up Care 08/27/2022 08:17:37 With:MARCELA PARISH JR, MD, Surgery Address: [address] [address]- When:Within 3 Week(s) Comments:Call office to make appointment. [facility] 09-02-2022 Summary of episod e note Discharge Instructions Thank you for allowing [place] to assist you with your healthcare needs. The following is important discharge information regarding your hospital visit. Your Care Team MONICA CAMPBELL APRN-FORGING DIE SINKER Your Diagnosis Acute post-operative pain What to do next Instructions From Your Doctor OK to resume nursing Follow Up Appointments Follow Up with MARCELA PARISH JR, MD, Surgery When In 3 weeks Why: Call office to make appointment. Where: [address] [facility] [address] [place] [address]- The Following Activity and Diet Have Been Ordered for You Discharge Activity - Ordered -- Lifting Restricted less than 25 pounds, 09/02/22 14:44:00 EDT Discharge Driving Restrictions - Ordered -- No driving for 1 week, 09/02/22 14:44:00 EDT Discharge Diet - Ordered -- No changes were made to your diet during your hospital stay. Please resume your pre hospitalization diet on discharge., 09/02/22 14:44:00 EDT The Following Equipment Has Been Ordered for You Discharge Home Equipment Discharge Wound Care - Ordered -- Dressing Type: Dry sterile drsg, Remove umbilical dressing tomorrow. Leave Steri-Strips on for 1 week. May shower starting tomorrow. Use ice for 24 to 48 hours., 09/02/22 14:44:00 EDT Allergies NKA Medications Please ask your primary doctor or pharmacist before taking any other medication not listed, including over the counter drugs, herbal medications, vitamins and or supplements as they may interact with your home medications. What How Much When Why Instructions Last Dose New acetaminophen-hydrocodone (Wagoner 325- 5 mg oral tablet) 1 tab(s) by mouth Every 4 hours as needed for for pain Acute post-operative pain Duration: 3 Days Pickup at [facility]/pharmacy #[id number] Pharmacy Information [facility]/pharmacy #[id number]: [address] [place], [place] [phone] Please take this list to your next doctor s visit. Bring all medications you take, including over the counter medications, herbals and other supplements with you to your doctor s visit. Patients and families are reminded to discard old lists and to update any records with all medication providers or retail pharmacies. Medication Leaflets acetaminophen and hydrocodone (a SEET a MIN [place] fen and ashlyn misha KOE done) Hycet, Lorcet, Wagoner, Verdrocet, Vicodin, Xodol, Zamicet What is the most important information I should know about acetaminophen and hydrocodone? MISUSE OF OPIOID MEDICINE CAN CAUSE ADDICTION, OVERDOSE, OR . Keep the medication in a place where others cannot get to it. Taking opioid medicine during may cause life-threatening withdrawal symptoms in the . Fatal side effects can occur if you use opioid medicine with alcohol, or with other drugs that cause drowsiness or slow your breathing. Stop taking this medicine and call your doctor right away if you have skin redness or a rash that spreads and causes blistering and peeling. What is acetaminophen and hydrocodone? Acetaminophen and hydrocodone is a combination medicine used to relieve moderate to severe pain. Acetaminophen and hydrocodone contains an opioid medicine, and may be habit-forming. Acetaminophen and hydrocodone may also be used for purposes not listed in this medication guide. What should I discuss with my healthcare provider before taking acetaminophen and hydrocodone? You should not use this medicine if you are allergic to acetaminophen or hydrocodone, or if you have: severe asthma or breathing problems; or a blockage in your stomach or intestines. Tell your doctor if you have ever had: breathing problems, sleep apnea (breathing stops during sleep); liver disease; a drug or alcohol addiction; kidney disease; a head injury or seizures; urination problems; or problems with your thyroid, pancreas, or gallbladder. If you use opioid medicine while you are , your baby could become dependent on the drug. This can cause life-threatening withdrawal symptoms in the baby after it is born. Babies born dependent on opioids may need medical treatment for several weeks. Ask a doctor before using opioid medicine if you are . Tell your doctor if you notice severe drowsiness or slow breathing in the nursing baby. How should I take acetaminophen and hydrocodone? Follow all directions on your prescription label. Never take this medicine in larger amounts, or for longer than prescribed. An overdose can damage your liver or cause . Tell your doctor if you feel an increased urge to use more of this medicine. Never share this medicine with another person, especially someone with a history of drug abuse or addiction. MISUSE CAN CAUSE ADDICTION, OVERDOSE, OR . Keep the medicine in a place where others cannot get to it. Selling or giving away this medicine is against the law. Measure liquid medicine carefully. Use the dosing syringe provided, or use a medicine dose-measuring device (not a kitchen spoon). If you need surgery or medical tests, tell the doctor ahead of time that you are using this medicine. You should not stop using this medicine suddenly. Follow your doctor's instructions about tapering your dose. Store at room temperature away from moisture and heat. Keep track of your medicine. You should be aware if anyone is using it improperly or without a prescription. Do not keep leftover opioid medication. Just one dose can cause in someone using this medicine accidentally or improperly. Ask your pharmacist where to locate a drug take-back disposal program. If there is no take-back program, flush the unused medicine down the toilet. What happens if I miss a dose? Since this medicine is used for pain, you are not likely to miss a dose. Skip any missed dose if it is almost time for your next dose. Do not use two doses at one time. What happens if I overdose? Seek emergency medical attention or call the Poison Help line at . An overdose of this medicine can be fatal, especially in a child or other person using the medicine without a prescription. Overdose symptoms may include nausea, vomiting, sweating, severe drowsiness, pinpoint pupils, slow breathing, or no breathing. Your doctor may recommend you get naloxone (a medicine to reverse an opioid overdose) and keep it with you at all times. A person caring for you can give the naloxone if you stop breathing or don't wake up. Your caregiver must still get emergency medical help and may need to perform CPR (cardiopulmonary resuscitation) on you while waiting for help to arrive. Anyone can buy naloxone from a pharmacy or local health department. Make sure any person caring for you knows where you keep naloxone and how to use it. What should I avoid while taking acetaminophen and hydrocodone? Avoid driving or operating machinery until you know how this medicine will affect you. Dizziness or drowsiness can cause falls, accidents, or severe injuries. Do not drink alcohol. Dangerous side effects or could occur. Ask a doctor or pharmacist before using any other medicine that may contain acetaminophen (sometimes abbreviated as APAP). Taking certain medications together can lead to a fatal overdose. What are the possible side effects of acetaminophen and hydrocodone? Get emergency medical help if you have signs of an allergic reaction: hives; difficulty breathing; swelling of your face, lips, tongue, or throat. Opioid medicine can slow or stop your breathing, and may occur. A person caring for you should give naloxone and/or seek emergency medical attention if you have slow breathing with long pauses, blue colored lips, or if you are hard to wake up. In rare cases, acetaminophen may cause a severe skin reaction that can be fatal. This could occur even if you have taken acetaminophen in the past and had no reaction. Stop taking this medicine and call your doctor right away if you have skin redness or a rash that spreads and causes blistering and peeling. Call your doctor at once if you have: noisy breathing, sighing, shallow breathing, breathing that stops; a light-headed feeling, like you might pass out; liver problems--nausea, upper stomach pain, tiredness, loss of appetite, dark urine, zaynab-colored stools, jaundice (yellowing of the skin or eyes); low cortisol levels-- nausea, vomiting, loss of appetite, dizziness, worsening tiredness or weakness; o high levels of serotonin in the body--agitation, hallucinations, fever, sweating, shivering, fast heart rate, muscle stiffness, twitching, loss of coordination, nausea, vomiting, diarrhea. Serious breathing problems may be more likely in older adults and in those who are debilitated or have wasting syndrome or chronic breathing disorders. Common side effects include: dizziness, drowsiness, feeling tired; nausea, vomiting, stomach pain; constipation; or headache. This is not a complete list of side effects and others may occur. Call your doctor for medical advice about side effects. You may report side effects to FDA at 8-452-AIV-7986. What other drugs will affect acetaminophen and hydrocodone? You may have breathing problems or withdrawal symptoms if you start or stop taking certain other medicines. Tell your doctor if you also use an antibiotic, antifungal medication, heart or blood pressure medication, seizure medication, or medicine to treat HIV or hepatitis C. Opioid medication can interact with many other drugs and cause dangerous side effects or . Be sure your doctor knows if you also use: cold or allergy medicines, bronchodilator asthma/COPD medication, or a diuretic ('water pill'); medicines for motion sickness, irritable bowel syndrome, or overactive bladder; other opioids--opioid pain medicine or prescription cough medicine; a sedative like Valium--diazepam, alprazolam, lorazepam, Xanax, Klonopin, Versed, and others; drugs that make you sleepy or slow your breathing--a sleeping pill, muscle relaxer, medicine to treat mood disorders or mental illness; drugs that affect serotonin levels in your body--a stimulant, or medicine for depression, Parkinson's disease, migraine headaches, serious infections, or nausea and vomiting. This list is not complete. Other drugs may affect acetaminophen and hydrocodone, including prescription and bxto-dto-xvwbjok medicines, vitamins, and herbal products. Not all possible interactions are listed here. Where can I get more information? Your doctor or pharmacist can provide more information about acetaminophen and hydrocodone. Remember, keep this and all other medicines out of the reach of children, never share your medicines with others, and use this medication only for the indication prescribed. Every effort has been made to ensure that the information provided by [employer]. ('[employer]') is accurate, up-to-date, and complete, but no guarantee is made to that effect. Drug information contained herein may be time sensitive. [employer] information has been compiled for use by healthcare practitioners and consumers in the [place] and therefore [employer] does not warrant that uses outside of the [place] are appropriate, unless specifically indicated otherwise. [employer] drug information does not endorse drugs, diagnose patients or recommend therapy. [employer] drug information is an informational resource designed to assist licensed healthcare practitioners in caring for their patients and/or to serve consumers viewing this service as a supplement to, and not a substitute for, the expertise, skill, knowledge and judgment of healthcare practitioners. The absence of a warning for a given drug or drug combination in no way should be construed to indicate that the drug or drug combination is safe, effective or appropriate for any given patient. [employer] does not assume any responsibility for any aspect of healthcare administered with the aid of information [employer] provides. The information contained herein is not intended to cover all possible uses, directions, precautions, warnings, drug interactions, allergic reactions, or adverse effects. If you have questions about the drugs you are taking, check with your doctor, nurse or pharmacist. Copyright [id number] [employer]. Version: 16.03. Revision Date: 07/02/2020. Education Materials Monitored Anesthesia Care, Care After These instructions provide you with information about caring for yourself after your procedure. Your health care provider may also give you more specific instructions. Your treatment has been planned according to current medical practices, but problems sometimes occur. Call your health care provider if you have any problems or questions after your procedure. What can I expect after the procedure? After your procedure, you may: Feel sleepy for several hours. Feel clumsy and have poor balance for several hours. Feel forgetful about what happened after the procedure. Have poor judgment for several hours. Feel nauseous or vomit. Have a sore throat if you had a breathing tube during the procedure. Follow these instructions at home: For at least 24 hours after the procedure: Have a responsible adult stay with you. It is important to have someone help care for you until you are awake and alert. Rest as needed. Do not: ? Participate in activities in which you could fall or become injured. ? Drive. ? Use heavy machinery. ? Drink alcohol. ? Take sleeping pills or medicines that cause drowsiness. ? Make important decisions or sign legal documents. ? Take care of children on your own. Eating and drinking Follow the diet that is recommended by your health care provider. If you vomit, drink water, juice, or soup when you can drink without vomiting. Make sure you have little or no nausea before eating solid foods. General instructions Take kyrf-vfv-suwowfl and prescription medicines only as told by your health care provider. If you have sleep apnea, surgery and certain medicines can increase your risk for breathing problems. Follow instructions from your health care provider about wearing your sleep device: ? Anytime you are sleeping, including during daytime naps. ? While taking prescription pain medicines, sleeping medicines, or medicines that make you drowsy. If you smoke, do not smoke without supervision. Keep all follow-up visits as told by your health care provider. This is important. Contact a health care provider if: You keep feeling nauseous or you keep vomiting. You feel light-headed. You develop a rash. You have a fever. Get help right away if: You have trouble breathing. Summary For several hours after your procedure, you may feel sleepy and have poor judgment. Have a responsible adult stay with you for at least 24 hours or until you are awake and alert. This information is not intended to replace advice given to you by your health care provider. Make sure you discuss any questions you have with your health care provider. Document Released: 09/06/2016 Document Revised: 08/15/2018 Document Reviewed: 09/06/2016 [employer] Patient Education 2020 [employer] Laparoscopic Cholecystectomy, Care After This sheet gives you information about how to care for yourself after your procedure. Your health care provider may also give you more specific instructions. If you have problems or questions, contact your health care provider. What can I expect after the procedure? After the procedure, it is common to have: Pain at your incision sites. You will be given medicines to control this pain. Mild nausea or vomiting. Bloating and possible shoulder pain from the air-like gas that was used during the procedure. Follow these instructions at home: Incision care Follow instructions from your health care provider about how to take care of your incisions. Make sure you: ? Wash your hands with soap and water before you change your bandage (dressing). If soap and water are not available, use hand lombardi developer. ? Change your dressing as told by your health care provider. ? Leave stitches (sutures), skin glue, or adhesive strips in place. These skin closures may need to be in place for 2 weeks or longer. If adhesive strip edges start to loosen and curl up, you may trim the loose edges. Do not remove adhesive strips completely unless your health care provider tells you to do that. Do not take baths, swim, or use a hot tub until your health care provider approves. Ask your health care provider if you can take showers. You may only be allowed to take sponge baths for bathing. Check your incision area every day for signs of infection. Check for: ? More redness, swelling, or pain. ? More fluid or blood. ? Warmth. ? Pus or a bad smell. Activity Do not drive or use heavy machinery while taking prescription pain medicine. Do not lift anything that is heavier than 10 lb (4.5 kg) until your health care provider approves. Do not play contact sports until your health care provider approves. Do not drive for 24 hours if you were given a medicine to help you relax (sedative). Rest as needed. Do not return to work or school until your health care provider approves. General instructions Take ctay-vih-hqoxtkm and prescription medicines only as told by your health care provider. To prevent or treat constipation while you are taking prescription pain medicine, your health care provider may recommend that you: ? Drink enough fluid to keep your urine clear or pale yellow. ? Take dzej-cqe-psdpqtq or prescription medicines. ? Eat foods that are high in fiber, such as fresh fruits and vegetables, whole grains, and beans. ? Limit foods that are high in fat and processed sugars, such as fried and sweet foods. Contact a health care provider if: You develop a rash. You have more redness, swelling, or pain around your incisions. You have more fluid or blood coming from your incisions. Your incisions feel warm to the touch. You have pus or a bad smell coming from your incisions. You have a fever. One or more of your incisions breaks open. Get help right away if: You have trouble breathing. You have chest pain. You have increasing pain in your shoulders. You faint or feel dizzy when you stand. You have severe pain in your abdomen. You have nausea or vomiting that lasts for more than one day. You have leg pain. This information is not intended to replace advice given to you by your health care provider. Make sure you discuss any questions you have with your health care provider. Document Released: 05/17/2006 Document Revised: 04/29/2018 Document Reviewed: 11/02/2016 [employer] Patient Education 2020 [employer]. Additional Information VACCINATE! IT SAVES LIVES! Members of the community who have not yet received the COVID-19 vaccine and would like to receive it can visit one of [facility] vaccine clinics. There are many vaccine clinic locations within the [facility]. For locations and available times, please visit [email or web address].o hio.gov/. It is important to note that some COVID mobile vaccine clinics are held outdoors and may be canceled in rainy or stormy conditions. To learn more about pediatric vaccinations (ages 5-11), we invite you to visit the [facility] webpage. [email or web address].[email or web address].org/p ages/8878-[place]-Jypgffotqwm-Freq xkdvtf-Qhnty-[email or web address].html To learn more about the COVID-19 vaccine, we invite you to visit the CDC website for a list of frequently asked questions. https://www.cdc.gov/coronavirus/ 2019-ncov/vaccines/faq.html [facility] Access Instructions: Stay connected with your healthcare team and access your personal medical information anytime with the [facility] Portal.If you would like a full copy of your medical records, please contact the [facility] Medical Records Department, Wednesday through Wednesday between 8a.m. and 4:30p.m. Please follow the directions below to access the portal: 1.Access the email account you provided upon registration to the [facility].2.Look for an invitation email from [facility].3.Open the email and access the invitation link: Accept [facility]itation to [facility].Fill in the required chung to create your account. Sign into [email or web address] with your username and password that you created in the above steps to stay up to date. You can then view a summary of results, a summary of your visits, and the ability to download your summaries to your computer or send the information securely to a physician. Remember that your healthcare information is confidential, so carefully consider who you will allow to register on the [facility] [facility] Portal for access to your information. You can also access the [facility] Portal on the [employer]. Simply click on Health Records under Health Data and then click on the [employer] logo. HOW TO SAFELY DISPOSE OF PRESCRIPTION MEDICATIONS Please use one of the following methods to safely dispose of your unused medications. 1.Use a drug disposal kit: the drug disposal pouch allows you to safely discard your old and unused drugs. Ask your nurse to give you one when you are discharged.2.Visit a local take-back location: Many local pharmacies and police departments have programs that collect old and unwanted prescription drugs. Call your local pharmacy or go to [email or web address]/[email or web address] to find one close to you.3.Make use of household items: Use cat litter or old coffee grounds to dispose medications if other options are not available. Mix your drugs with these household products, seal them in an airtight container and throw it into the garbage. Call [facility]: [phone] to be sure your drugs can be disposed of in this way. Some medicines may require a different approach.4.Never flush your medications down the toilet. IF YOU HAVE BEEN PRESCRIBED AN OPIOID FOR PAIN If you have been prescribed an opioid (such as hydrocodone, oxycodone or morphine), it is critical to understand the possible side effects and risks of opioid pain medications. Even when taken as directed, opioids can have several side effects including: Tolerance, meaning you might need to take more of a medication for the same pain relief. Nausea, vomiting and/or constipation. Sleepiness, dizziness, dry mouth, confusion, depression or itching. Physical dependence, meaning you have withdrawal symptoms when a medication is stopped, can develop within a few days. KNOW YOUR RESPONSIBILITIES It is important to know exactly how much and how often to take the opioid pain medications you are prescribed. Never take opioids in higher amounts or more often than prescribed. Do not combine opioids with alcohol or other drugs that cause drowsiness, such as benzodiazepines, also known as benzos, including diazepam and alprazolam, muscle relaxants or sleep aids. Never sell or share prescription opioids. This is illegal. Store opioids in a secure place and out of reach of others (including children, family, friends and visitors). The last page of this document has been signed and retained as a CHART COPY. Signatures Patient Education Materials Monitored Anesthesia Care, Care After Laparoscopic Cholecystectomy, Care After Medication Leaflets acetaminophen and hydrocodone My discharge plan and instructions have been reviewed and explained to me and I,ANJALI HOWARD understand my current condition and have read and understand these discharge instructions. I have received a written copy of the plan/instructions. If I have questions, I am aware that I should contact my doctor. Patient/Cabinetmaker Apprentice Signature: Date/Time: Relationship to Patient: Witness Name/Signature: Date/Time: [facility] 09-02-2022 Anesthesiology Consult note Patient: ANJALI HOWARD Age: 26 years Sex: Female : 1995 Associated Diagnoses: None Author: AMBER FAITH [employer] PROSTHETICS ASSISTANT-LEDGE MAN Preoperative Information Time of last food or liquid consumption: 09/02/2022 00:00:00 Anesthesia history Patient's history: negative. Family's history: negative. Review of Systems Ear/Nose/Mouth/Throat: Negative. Respiratory: Negative. Cardiovascular: Negative. Gastrointestinal: Negative. Genitourinary: Negative. Endocrine: Negative. Musculoskeletal: Negative. Integumentary: Negative. Neurologic: Negative. Health Status Allergies: Allergic Reactions (Selected) NKA, Allergies (1) ActiveReaction NKANone Documented Current medications: (Selected) Inpatient Medications Ordered LR 1000 mL: 20 mL/hr, Intravenous LR 1000 mL: 20 mL/hr, Intravenous Zofran ( PACU ): 4 mg, 2 mL, IV Push, AsDirected, PRN: Nausea/Vomiting lidocaine 1% preservative-free injectable solution: 2.5 mg, 0.25 mL, Intradermal, prep pharm morphine ( PACU ): 2 mg, 1 mL, IV Push, q5min, PRN: Pain, scale 4-6, Medications (5) Active Scheduled: (1) lidocaine 1% (MPF) 2 mL vial pf 2.5 mg 0.25 mL, Intradermal, prep pharm Continuous: (2) Lactated Ringers Infusion 1000 mL 1,000 mL, Intravenous, 20 mL/hr Lactated Ringers Infusion 1000 mL 1,000 mL, Intravenous, 20 mL/hr PRN: (2) morphine 2 mg/mL 1 mL syringe 2 mg 1 mL, IV Push, q5min ondansetron 2 mg/ 1 mL 2 mL INJ 4 mg 2 mL, IV Push, AsDirected Problem list: Medical Abdominal pain / SNOMED CT 43903067 / Confirmed Elevated liver enzymes / SNOMED CT 2152057965 / Confirmed Neutropenia / SNOMED CT 852721028 / Confirmed Right upper quadrant abdominal pain / SNOMED CT 697618641 / Confirmed Splenomegaly / SNOMED CT 03420034 / Confirmed, Active Problems (5) Abdominal pain Elevated liver enzymes Neutropenia Right upper quadrant abdominal pain Splenomegaly Histories Past Medical History: No active or resolved past medical history items have been selected or recorded. Family History: Cancer Grandparent Comments: 06/29/2022 13:53 Laurita Tinsley CMA thyroid cancer Breast cancer Maternal Aunt Cholecystectomy Mother Grandparent Diabetes Grandparent Procedure history: Tear meniscus ([id number]) in 2013 at 17 Years. Comments: 06/29/2022 13:55 Laurita Tinsley CMA left knee Social History Social & Psychosocial Habits Alcohol 06/29/2022 Use: Current Frequency: 1-2 times per year Substance Abuse 06/29/2022 Use: Never Tobacco 06/29/2022 Tobacco Use: Never (less than 100 in l Nutrition/Health 06/29/2022 Caffeine intake amount: coffee- 1 cup daily . Physical Examination Vital Signs 09/02/2022 11:31 EDT Temperature Temporal Artery 36.7 DegC Apical Heart Rate 80 bpm Respiratory Rate 12 br/min LOW Systolic Blood Pressure Non-Invasive 101 mmHg Diastolic Blood Pressure Non-Invasive 65 mmHg Blood Pressure Method Automatic Blood Pressure Location Left arm Blood Pressure Cuff Size Medium Vital Signs(last 24 hrs) Last Charted Resp Rate L 12br/min (SEP 02 11:31) RHA562 mmHg (SEP 02 11:) DBP65 mmHg (SEP 02 11:) BMI19.53 (SEP 02 11:31) Measurements from flowsheet : Measurements 09/02/2022 11:31 EDT Height 160 cm Admission Weight 50 kg Weight Method Stated [place] Body Weight 52.38 kg Body Mass Index 19.53 kg/m2 Body Mass Index 19.53 kg/m2 Pain assessment: Pain Assessment 09/02/2022 11:31 EDT Primary Pain Intensity 0 Pain Scale Type 0-10 Pain scale . General: Alert and oriented. Airway: Normal temporomandibular joint mobility. Mallampati classification: II (soft palate, fauces, uvula visible). Head: Normocephalic. Dentition Evaluation: Own teeth. Neck: Supple. Respiratory: Lungs are clear to auscultation. Cardiovascular: Normal rate. Heart Sounds: Normal. Gastrointestinal: Soft. Musculoskeletal Normal range of motion. Integumentary: Intact. Neurologic: Alert, Oriented. Review / Management Results review: Labs (Last four charted values) WBC 5.1(SEP 02) Hgb 12.7(SEP 02) Hct L 35.8(SEP 02) Plt 181(SEP 02) Na 144(SEP 02) K 3.8(SEP 02) CO2 26(SEP 02) Cl H 108(SEP 02) Cr 0.75(SEP 02) BUN 16(SEP 02) Glucose 79(SEP 02) Ca 9.0(SEP 02) , Lab results 09/02/2022 13:27 EDT SN - CAt - Case Attendee SN - CAt - Case Attendee SN - CAt - Case Attendee SN - CAt - Case Attendee SN - CAt - Case Attendee SN - CAt - Case Attendee SN - CAt - Case Attendee SN - CAt - Case Attendee SN - CAt - Case Attendee SN - CAt - Case Attendee SN - CAt - Case Attendee SN - CAt - Case Attendee SN - CAt - Role Performed Primary Surgeon SN - CAt - Role Performed LEDGE MAN SN - CAt - Role Performed Snuff Container Inspector 1 SN - CAt - Role Performed Scrub 2 SN - CAt - Role Performed Scrub 1 SN - CAt - Role Performed Oxyacetylene Torch Operator 1 09/02/2022 11:49 EDT SN - Preop - CTm Pt in SDS Room 09/02/2022 11:26 SN - Preop - CTm Pt Ready for OR/Proced 09/02/2022 11:49 09/02/2022 11:48 EDT IV Present Present Antecubital Left 09/02/2022 20 gauge Peripheral IV Activity: Insert new site Peripheral IV Dressing Condition: Clean, Dry, Intact Peripheral IV Dressing Activity: Applied, Transparent dressing Peripheral IV Line Status/Patency: Flushes easily, Continuous infusion Peripheral IV Site Condition: No complications Peripheral IV Equipment: Extension set, PRN Adaptor 09/02/2022 11:47 EDT indocyanine green 5 mg mg Lactated Ringers Injection Begin Bag 1,000 mL mL 09/02/2022 11:43 EDT WBC 5.1 10^3/mcL RBC 4.11 10^6/mcL LOW Hgb 12.7 G/dL Hct 35.8 % LOW MCV 87.2 fL MCH 30.9 pg MCHC 35.5 G/dL RDW 12.9 % Platelet 181 10^3/mcL MPV 8.6 fL Neutrophil % 57.1 % Lymphocyte % 31.2 % Monocyte % 7.4 % Eosinophil % 3.8 % Basophil % 0.2 % Neutrophil, Absolute 2.9 10^3/mcL Lymphocyte, Absolute 1.5 10^3/mcL Monocyte, Absolute 0.3 10^3/mcL Eosinophil, Absolute 0.2 10^3/mcL Basophil, Absolute 0.0 10^3/mcL Glucose Level 79 mg/dL Sodium Level 144 mmol/L Potassium Level 3.8 mmol/L Chloride 108 mmol/L HI CO2 26 mmol/L Electrolyte Balance 10.0 mEq/L BUN 16 mg/dL Creatinine Lvl (s) 0.75 mg/dL BUN/Creatinine Ratio 21 ratio Calcium Lvl 9.0 mg/dL Total Protein 7.2 G/dL Albumin Level 4.2 G/dL Globulin 3.0 G/dL NA A/G Ratio 1.4 ratio Bili Total 0.6 mg/dL Alk Phos 90 U/L AST/SGOT 15 U/L ALT/SGPT 23 U/L GFR Non- 94 ml/min/1.73sqm NA GFR 114 ml/min/1.73sqm NA Creatinine Clearance Calc 90.51 mL/min 09/02/2022 11:31 EDT Designated Person #1 We May Share PHI Designated Person #1 We May Share PHI Designated Person #1 Relationship Spouse Privacy Restrictions Requested None Height 160 cm Admission Weight 50 kg Weight Method Stated [place] Body Weight 52.38 kg Body Mass Index 19.53 kg/m2 Body Mass Index 19.53 kg/m2 Temperature Temporal Artery 36.7 DegC Apical Heart Rate 80 bpm Respiratory Rate 12 br/min LOW Systolic Blood Pressure Non-Invasive 101 mmHg Diastolic Blood Pressure Non-Invasive 65 mmHg Blood Pressure Method Automatic Blood Pressure Location Left arm Blood Pressure Cuff Size Medium Primary Pain Intensity 0 Pain Scale Type 0-10 Pain scale Heart Rhythm Regular Oxygen Therapy Room air Oxygen Saturation 100 % Abdomen Description Non-distended Abdomen Palpation Non-Tender Bowel Sounds All Quadrants Present Urinary Elimination Voiding, no difficulties Status No, per patient Skin Temperature Warm Skin Description [place], Dry Skin Integrity Intact Neurological Symptoms Patient denies Extremity Movement Equal Characteristics of Speech Clear Level of Consciousness Alert Strength All Extremities Strong Tone All Extremities Normal Sensation All Extremities Intact Affect/Behavior Appropriate Orientation Oriented x 4 Sensory Deficits None Sleep Apnea Snore No Sleep Apnea Tired No Sleep Apnea Obstruction No Sleep Apnea Pressure No Sleep Apnea BMI No Sleep Apnea Age No Sleep Apnea Neck No Sleep Apnea Gender No Sleep Apnea Score 0 High Risk for Sleep Apnea No Diagnosed With Sleep Apnea No Advanced Directives No - refuses information Infectious Disease Symptoms Patient states no symptoms Infectious Disease Recent Exposure No Alcohol and Drug Use No Employee of Institutional Living No Health Care Employee No History of Exposure to TB No History of Positive Chest X-Ray for TB No History of Positive TB Skin Test No Homeless No Known Immunosuppression No Recent Immigrant No Resident of Institutional Living No Bloody Sputum No Fatigue No Fever No Loss of Appetite No Night Sweats No Persistent Cough > 3 Weeks No Weight Loss No Allergies No Director Of Quality On Yes Consent Form Signed Yes Patient Dressed In Hospital gown CHG Preoperative Wash/Wipe Night before procedure, Day of procedure CHG Skin Prep Completed for Eligible Surgery History & Physical Update On Chart Yes History & Physical On Chart Yes Obstructive Sleep Apnea Assess Completed Yes Safety Brochure Information Reviewed Unable to complete [facility] Video Viewed No Barriers to Learning None evident Teaching Method Explanation, Printed materials Teaching Evaluation Verbalizes/Nonverbally indicates understanding Preferred Written Language [place] Preferred Spoken Language [place] Information Given by Patient Patient's Current Physicians KATELYN HUMPHREY Discharge To, Anticipated Home independently Activity Status ADL Awake SCD On/Re-applied bilateral knee high NPO Status Maintained Standard Safety ID band on, Call device within reach, Bed in low position, Wheels locked, Upper/Half-Length side-rails up, Safety level maintained Prev Test Positive/Diagnosis w/COVID-19 Yes Previous COVID-19 Positive Date feb 2021 Current Quarantine/Isolated any Illness No Any Contact with Sick Animals/Birds No Traveled Anywhere in Last 30 Days No Allergy Band on and Verified No Patient ID Band on and Verified Yes Implants Verified Yes Pacemaker/AICD Verified Yes Blood Consent Signed Yes Last Fluid Intake 09/01/2022 11:59 Last Food Intake 09/01/2022 20:00 Last Void 09/02/2022 11:25 Lost Weight Unintentionally Recently No Eat Poorly Due to Decreased Appetite No Total MST Score 0 Yes Personal Devices, Patient Valuables None Anesthesia/Transfusions Prior anesthesia Admission Note-Nursing Same Day Patient History 09/02/2022 11:29 EDT Test Urine Negative test (u) int test (u) int QC PRGUN Negative QC PRGUP Positive . Assessment and Plan [place] [employer] Anesthesiologists (ASA) physical status classification: Class I. Anesthetic Preoperative Plan Premedication: intravenous. Anesthetic technique: General. Induction: intravenously. Maintenance airway: Oral endotracheal tube. Special Monitoring. Postoperative pain management: Per surgeon. Risks discussed: nausea, vomiting, sore throat. Informed consent: signed by patient. Digitally Signed by AMBER FAITH on 09/02/2022 01:[address] [facility] 07-22-2022 Note . MICRO - Microbiology PROCEDURE: Urine Culture [*1] SOURCE: Urine BODY SITE: COLLECTED DATE/TIME: 07/20/2022 21:35 EST RECEIVED DATE/TIME: 07/21/2022 14:06 EST START DATE/TIME: 07/21/2022 14:07 EST FREE TEXT SOURCE: FINAL REPORTS Final Report [] Verified Date/Time/Personnel: 07/22/2022 09:25 EST <10,000 cfu/ml. No Significant growth. Sensitivity not indicated. Performing Locations *1: This test was performed at: [facility], [address] [place] [address], [facility] , [facility] ([place]) 07-21-2022 Note Patient called hiral osborne pap and counseling provided [facility] 07-21-2022 Telephone encounter Note Patient called regarding pap and counseling provided [facility] 07-21-2022 Miscellaneous Notes Patient called regarding pap and counseling provided documented in this encounter [facility] 07-20-2022 Hospital Discharg e instructions Patient Education 07/20/2022 21:25:15 Abdominal Pain, Unknown Cause, (Female) Unknown Causes of Abdominal Pain (Female) The exact cause of your belly (abdominal) pain is not clear. This does not mean that this is something to worry about. Everyone likes to know the exact cause of the problem. But sometimes with belly pain, there is no clear-cut cause, and this could be a good thing. The good news is that your symptoms can be treated, and you will feel better. Your condition does not seem serious now. But sometimes the signs of a serious problem may take more time to appear. For this reason, it is important for you to watch for any new symptoms, problems, or worsening of your condition. Over the next few days, the abdominal pain may come and go. Or it may be constant. Other common symptoms can include nausea and vomiting. Sometimes it can be difficult to tell if you feel nauseous. You may just feel bad and not connect that feeling to nausea. Constipation, diarrhea, and a fever may go along with the pain. The pain may continue even if treated correctly over the following days. Depending on how things go, sometimes the cause can become clear and may need more or different treatment. Additional evaluations, medicines, or tests may also be needed. Home care Your healthcare provider may prescribe medicine for pain, symptoms, or an infection. Follow the healthcare provider's instructions for taking these medicines. General care Rest as much as you can until your next exam. No strenuous activities. Try to find positions that ease discomfort. A small pillow placed on the abdomen may help relieve pain. Something warm on your abdomen (such as a heating pad) may help, but be careful not to burn yourself. Diet Don t force yourself to eat, especially if having cramps, vomiting, or diarrhea. Water is important so you don't get dehydrated. Soup may also be good. Sports drinks may also help, especially if they are not too acidic. Don't drink sugary drinks as this can make things worse. Take liquids in small amounts. Don t guzzle them. Caffeine sometimes makes the pain and cramping worse. Don t take dairy products if you have vomiting or diarrhea. Don't eat large amounts at a time. Wait a few minutes between bites. Eat a diet low in fiber (called a low-residue diet). Foods allowed include refined breads, white rice, fruit and vegetable juices without pulp, tender meats. These foods will pass more easily through the intestine. Don t have whole-grain foods, whole fruits and vegetables, meats, seeds and nuts, fried or fatty foods, dairy, alcohol and spicy foods until your symptoms go away. Follow-up care Follow up with your healthcare provider, or as advised, if your pain does not begin to improve in the next 24 hours. Call 911 Call 911 if any of these occur: Trouble breathing Confusion Fainting or loss of consciousness Rapid heart rate Seizure When to seek medical advice Call your healthcare provider right away if any of these occur: Pain gets worse or moves to the right lower abdomen New or worsening vomiting or diarrhea Swelling of the abdomen Unable to pass stool for more than 3 days Fever of 100.4 F (38 C) or higher, or as directed by your healthcare provider. Blood in vomit or bowel movements (dark red or black color) Yellow color of eyes and skin (jaundice) Weakness, dizziness Chest, arm, back, neck, or jaw pain Unexpected vaginal bleeding or missed period Can't keep down liquids or water and you are getting dehydrated [id number] [employer]. [address] [place] [address], [place] [address]. All rights reserved. This information is not intended as a substitute for professional medical care. Always follow your healthcare professional's instructions. 07/20/2022 21:25:09 Urinary Tract Infections in Women Urinary Tract Infections in Women Urinary tract infections (UTIs) are most often caused by bacteria. These bacteria enter the urinary tract. The bacteria may come from outside the body. Or they may travel from the skin outside the rectum or vagina into the urethra. Female anatomy makes it easy for bacteria from the bowel to enter a woman s urinary tract, which is the most common source of UTI. This means women develop UTIs more often than men. Pain in or around the urinary tract is a common UTI symptom. But the only way to know for sure if you have a UTI for the healthcare provider to test your urine. The two tests that may be done are the urinalysis and urine culture. Types of UTIs Cystitis. A bladder infection (cystitis) is the most common UTI in women. You may have urgent or frequent urination. You may also have pain, burning when you urinate, and bloody urine. Urethritis. This is an inflamed urethra, which is the tube that carries urine from the bladder to outside the body. You may have lower stomach or back pain. You may also have urgent or frequent urination. Pyelonephritis. This is a kidney infection. If not treated, it can be serious and damage your kidneys. In severe cases, you may need to stay in the hospital. You may have a fever and lower back pain. Medicines to treat a UTI Most UTIs are treated with antibiotics. These kill the bacteria. The length of time you need to take them depends on the type of infection. It may be as short as 3 days. If you have repeated UTIs, you may need a low-dose antibiotic for several months. Take antibiotics exactly as directed. Don t stop taking them until all of the medicine is gone. If you stop taking the antibiotic too soon, the infection may not go away. You may also develop a resistance to the antibiotic. This can make it much harder to treat. Lifestyle changes to treat and prevent UTIs The lifestyle changes below will help get rid of your UTI. They may also help prevent future UTIs. Drink plenty of fluids. This includes water, juice, or other caffeine-free drinks. Fluids help flush bacteria out of your body. Empty your bladder. Always empty your bladder when you feel the urge to urinate. And always urinate before going to sleep. Urine that stays in your bladder can lead to infection. Try to urinate before and after sex as well. Practice good personal hygiene. Wipe yourself from front to back after using the toilet. This helps keep bacteria from getting into the urethra. Use condoms during sex. These help prevent UTIs caused by sexually transmitted bacteria. Also don't use spermicides during sex. These can increase the risk for UTIs. Choose other forms of control instead. For women who tend to get UTIs after sex, a low-dose of a preventive antibiotic may be used. Be sure to discuss this option with your healthcare provider. Follow up with your healthcare provider as directed. He or she may test to make sure the infection has cleared. If needed, more treatment may be started. [id number] [employer]. [address] [place] [address]. All rights reserved. This information is not intended as a substitute for professional medical care. Always follow your healthcare professional's instructions. Follow Up Care 07/20/2022 18:15:10 With:SHARI DAVILA MD Address: [address] [address] [phone] When:2-[address] [facility] 07-20-2022 Note Discharge Instructions Thank you for allowing [facility] to assist you with your healthcare needs. The following is important discharge information regarding your hospital visit. Diagnosis from Today's Visit UTI - Urinary tract infection Abdominal pain What to Do Next Instructions from Your Care Team No qualifying data available. Post Acute Orders No qualifying data available. You Need to Schedule the Following Appointments Follow Up with SHARI DAVILA MD When Within 2-4 days Where: [address] [address] [phone] Allergies NKA Medications Please ask your primary doctor or pharmacist before taking any other medication not listed, including over the counter drugs, herbal medications, vitamins and or supplements as they may interact with your home medications. What How Much When Why Instructions Last Dose New cephalexin (cephalexin 500 mg oral capsule) 1 cap by mouth Every 12 hours UTI - Urinary tract infection Duration: 7 Days Printed Prescription New dicyclomine (Bentyl use dicyclomine ) 20 Milligram by mouth Four (4) times a day UTI - Urinary tract infection Duration: 7 Days Printed Prescription New famotidine (Pepcid 20 mg oral tablet) 1 tab(s) by mouth Two (2) times a day UTI - Urinary tract infection Printed Prescription New ondansetron (ondansetron 4 mg oral tablet, disintegrating) 1 tab(s) by mouth Every 6 hours UTI - Urinary tract infection Duration: 4 Days Printed Prescription Unchanged norethindrone (norethindrone 0.35 mg oral tablet) 1 tab(s) by mouth Once a day Please take this list to your next doctor s visit. Bring all medications you take, including over the counter medications, herbals and other supplements with you to your doctor s visit. Patients and families are reminded to discard old lists and to update any records with all medication providers or retail pharmacies. Education Materials Unknown Causes of Abdominal Pain (Female) The exact cause of your belly (abdominal) pain is not clear. This does not mean that this is something to worry about. Everyone likes to know the exact cause of the problem. But sometimes with belly pain, there is no clear-cut cause, and this could be a good thing. The good news is that your symptoms can be treated, and you will feel better. Your condition does not seem serious now. But sometimes the signs of a serious problem may take more time to appear. For this reason, it is important for you to watch for any new symptoms, problems, or worsening of your condition. Over the next few days, the abdominal pain may come and go. Or it may be constant. Other common symptoms can include nausea and vomiting. Sometimes it can be difficult to tell if you feel nauseous. You may just feel bad and not connect that feeling to nausea. Constipation, diarrhea, and a fever may go along with the pain. The pain may continue even if treated correctly over the following days. Depending on how things go, sometimes the cause can become clear and may need more or different treatment. Additional evaluations, medicines, or tests may also be needed. Home care Your healthcare provider may prescribe medicine for pain, symptoms, or an infection. Follow the healthcare provider's instructions for taking these medicines. General care Rest as much as you can until your next exam. No strenuous activities. Try to find positions that ease discomfort. A small pillow placed on the abdomen may help relieve pain. Something warm on your abdomen (such as a heating pad) may help, but be careful not to burn yourself. Diet Don t force yourself to eat, especially if having cramps, vomiting, or diarrhea. Water is important so you don't get dehydrated. Soup may also be good. Sports drinks may also help, especially if they are not too acidic. Don't drink sugary drinks as this can make things worse. Take liquids in small amounts. Don t guzzle them. Caffeine sometimes makes the pain and cramping worse. Don t take dairy products if you have vomiting or diarrhea. Don't eat large amounts at a time. Wait a few minutes between bites. Eat a diet low in fiber (called a low-residue diet). Foods allowed include refined breads, white rice, fruit and vegetable juices without pulp, tender meats. These foods will pass more easily through the intestine. Don t have whole-grain foods, whole fruits and vegetables, meats, seeds and nuts, fried or fatty foods, dairy, alcohol and spicy foods until your symptoms go away. Follow-up care Follow up with your healthcare provider, or as advised, if your pain does not begin to improve in the next 24 hours. Call 911 Call 911 if any of these occur: Trouble breathing Confusion Fainting or loss of consciousness Rapid heart rate Seizure When to seek medical advice Call your healthcare provider right away if any of these occur: Pain gets worse or moves to the right lower abdomen New or worsening vomiting or diarrhea Swelling of the abdomen Unable to pass stool for more than 3 days Fever of 100.4 F (38 C) or higher, or as directed by your healthcare provider. Blood in vomit or bowel movements (dark red or black color) Yellow color of eyes and skin (jaundice) Weakness, dizziness Chest, arm, back, neck, or jaw pain Unexpected vaginal bleeding or missed period Can't keep down liquids or water and you are getting dehydrated [id number] [employer]. [address] [place] [address], [place] [address]. All rights reserved. This information is not intended as a substitute for professional medical care. Always follow your healthcare professional's instructions. Urinary Tract Infections in Women Urinary tract infections (UTIs) are most often caused by bacteria. These bacteria enter the urinary tract. The bacteria may come from outside the body. Or they may travel from the skin outside the rectum or vagina into the urethra. Female anatomy makes it easy for bacteria from the bowel to enter a woman s urinary tract, which is the most common source of UTI. This means women develop UTIs more often than men. Pain in or around the urinary tract is a common UTI symptom. But the only way to know for sure if you have a UTI for the healthcare provider to test your urine. The two tests that may be done are the urinalysis and urine culture. Types of UTIs Cystitis. A bladder infection (cystitis) is the most common UTI in women. You may have urgent or frequent urination. You may also have pain, burning when you urinate, and bloody urine. Urethritis. This is an inflamed urethra, which is the tube that carries urine from the bladder to outside the body. You may have lower stomach or back pain. You may also have urgent or frequent urination. Pyelonephritis. This is a kidney infection. If not treated, it can be serious and damage your kidneys. In severe cases, you may need to stay in the hospital. You may have a fever and lower back pain. Medicines to treat a UTI Most UTIs are treated with antibiotics. These kill the bacteria. The length of time you need to take them depends on the type of infection. It may be as short as 3 days. If you have repeated UTIs, you may need a low-dose antibiotic for several months. Take antibiotics exactly as directed. Don t stop taking them until all of the medicine is gone. If you stop taking the antibiotic too soon, the infection may not go away. You may also develop a resistance to the antibiotic. This can make it much harder to treat. Lifestyle changes to treat and prevent UTIs The lifestyle changes below will help get rid of your UTI. They may also help prevent future UTIs. Drink plenty of fluids. This includes water, juice, or other caffeine-free drinks. Fluids help flush bacteria out of your body. Empty your bladder. Always empty your bladder when you feel the urge to urinate. And always urinate before going to sleep. Urine that stays in your bladder can lead to infection. Try to urinate before and after sex as well. Practice good personal hygiene. Wipe yourself from front to back after using the toilet. This helps keep bacteria from getting into the urethra. Use condoms during sex. These help prevent UTIs caused by sexually transmitted bacteria. Also don't use spermicides during sex. These can increase the risk for UTIs. Choose other forms of control instead. For women who tend to get UTIs after sex, a low-dose of a preventive antibiotic may be used. Be sure to discuss this option with your healthcare provider. Follow up with your healthcare provider as directed. He or she may test to make sure the infection has cleared. If needed, more treatment may be started. [id number] [employer]. [address] [place] [address]. All rights reserved. This information is not intended as a substitute for professional medical care. Always follow your healthcare professional's instructions. Additional Information VACCINATE! IT SAVES LIVES! Members of the community who have not yet received the COVID-19 vaccine and would like to receive it can visit one of [facility] vaccine clinics. There are many vaccine clinic locations within the [facility]. For locations and available times, please visit [email or web address] [email or web address] It is important to note that some COVID mobile vaccine clinics are held outdoors and may be canceled in rainy or stormy conditions. To learn more about pediatric vaccinations (ages 5-11), we invite you to visit the [facility] webpage. [email or web address] [email or web address]-Ccizwiiwktj-Freq [email or web address] To learn more about the COVID-19 vaccine, we invite you to visit the CDC website for a list of frequently asked questions. https://www.cdc.gov/coronavirus/ 2019-ncov/vaccines/faq.html [facility] Access Instructions: Stay connected with your healthcare team and access your personal medical information anytime with the [facility] Patient Portal. If you would like a full copy of your medical records please contact the [facility] Medical Records Department Wednesday through Wednesday between 8a.m. and 4:30p.m. Please follow the directions below to access the portal: 1.Access the email account you provided upon registration to the [facility].2.Look for an invitation email from [facility].3.Open the email and access the invitation link: Accept Invitation to [facility]4.Fill in the required chung to create your account. Sign into [email or web address] with your username and password that you created in the above steps to stay up to date. You can then view a summary of results, a summary of your visits, and the ability to download your summaries to your computer or send the information securely to a physician. Remember that your healthcare information is confidential, so carefully consider who you will allow to register on the [facility] Portal for access to your information. You can also access the [facility] Patient Portal on the [employer]. Simply click on Health Records under Health Data and then click on the Master logo. HOW TO SAFELY DISPOSE OF PRESCRIPTION MEDICATIONS Please use one of the following methods to safely dispose of your unused medications. 1.Use a drug disposal kit: the drug disposal pouch allows you to safely discard your old and unused drugs. Ask your nurse to give you one when you are discharged.2.Visit a local take-back location: Many local pharmacies and police departments have programs that collect old and unwanted prescription drugs. Call your local pharmacy or go to http://[employer]/9Z2Jc8n to find one close to you.3.Make use of household items: Use cat litter or old coffee grounds to dispose medications if other options are not available. Mix your drugs with these household products, seal them in an airtight container and throw it into the garbage. Call [facility]: [phone] to be sure your drugs can be disposed of in this way. Some medicines may require a different approach.4.Never flush your medications down the toilet. IF YOU HAVE BEEN PRESCRIBED AN OPIOIDS FOR PAIN If you have been prescribed an opioid (such as hydrocodone, oxycodone or morphine), it is critical to understand the possible side effects and risks of opioid pain medications. Even when taken as directed, opioids can have several side effects including: Tolerance, meaning you might need to take more of a medication for the same pain relief. Nausea, vomiting and/or constipation. Sleepiness, dizziness, dry mouth, confusion, depression or itching. Physical dependence, meaning you have withdrawal symptoms when a medication is stopped ? this can develop within a few days. KNOW YOUR RESPONSIBILITIES It is important to know exactly how much and how often to take the opioid pain medications you are prescribed. Never take opioids in higher amounts or more often than prescribed. Do not combine opioids with alcohol or other drugs that cause drowsiness, such as benzodiazepines, also known as benzos, including diazepam and alprazolam, muscle relaxants or sleep aids. Never sell or share prescription opioids. This is illegal. Store opioids in a secure place and out of reach of others (including children, family, friends and visitors). The last page(s) of this document has been signed and retained as a CHART COPY Signatures Patient Education Materials Abdominal Pain, Unknown Cause, (Female) Urinary Tract Infections in Women Medication Leaflets My discharge plan and instructions have been reviewed and explained to me and I,ANJALI HOWARD understand my current condition and have read and understand these discharge instructions. I have received a written copy of the plan/instructions. If I have questions, I am aware that I should contact my doctor. Patient/Cabinetmaker Apprentice Signature: Date/Time: Relationship to Patient: Witness Name/Signature: Date/Time: [facility] 07-20-2022 Note ORIGINAL EXAMINATION: CT OF THE ABDOMEN AND PELVIS WITH CONTRAST 07/20/2022 8:43 pm TECHNIQUE: CT of the abdomen and pelvis was performed with the administration of intravenous contrast. Multiplanar reformatted images are provided for review. Automated exposure control, iterative reconstruction, and/or weight based adjustment of the mA/kV was utilized to reduce the radiation dose to as low as reasonably achievable. COMPARISON: CT abdomen/pelvis 12/02/2016, ultrasound 07/08/2022. HISTORY: ORDERING SYSTEM PROVIDED HISTORY: Reason for Exam: abdominal pain. Left upper quadrant abdominal pain. FINDINGS: Lung bases are unremarkable. No focal hepatic lesion. Question mild intrahepatic biliary dilation. The spleen is borderline enlarged and measures 12.2 cm in craniocaudal dimension. The adrenal glands and pancreas are unremarkable. The gallbladder is unremarkable. Symmetric nephrograms. The ureters are difficult to follow although no suspicious calcifications are seen through the expected course. The bladder is nondistended. Fluid-filled nondilated loops of small bowel. Small air-fluid levels are noted of the nondilated colon and rectum. The appendix is not definitively visualized, however there is no pericecal inflammation. The uterus appears physiologic. Trace free fluid within the pelvis. No free intraperitoneal gas. No lymphadenopathy. Nonaneurysmal abdominal aorta. No acute osseous abnormality. IMPRESSION: Small air-fluid levels of the colon and rectum without dilation are likely related to diarrhea. No evidence of obstruction. Question mild intrahepatic biliary dilation. Trace free fluid within the pelvis likely physiologic. Borderline enlarged spleen, slightly larger from remote exam 12/02/2016. I have personally reviewed the images of this examination, agree with, and have edited the resident's findings and interpretation. Interpreted by: Bello Yan DO Preliminary Report By: Vidhi Mendoza Electronically signed By Bello Yan DO Dictated Date: 07/20/2022 8:47:36 PM Prelim Date: 07/20/2022 8:55:12 PM Sign Date: 07/20/2022 9:20:28 PM Ordering Provider: [facility] 07-20-2022 Note ORIGINAL EXAMINATION: CT OF THE ABDOMEN AND PELVIS WITH CONTRAST 07/20/2022 8:43 pm TECHNIQUE: CT of the abdomen and pelvis was performed with the administration of intravenous contrast. Multiplanar reformatted images are provided for review. Automated exposure control, iterative reconstruction, and/or weight based adjustment of the mA/kV was utilized to reduce the radiation dose to as low as reasonably achievable. COMPARISON: CT abdomen/pelvis 12/02/2016, ultrasound 07/08/2022. HISTORY: ORDERING SYSTEM PROVIDED HISTORY: Reason for Exam: abdominal pain. Left upper quadrant abdominal pain. FINDINGS: Lung bases are unremarkable. No focal hepatic lesion. Question mild intrahepatic biliary dilation. The spleen is borderline enlarged and measures 12.2 cm in craniocaudal dimension. The adrenal glands and pancreas are unremarkable. The gallbladder is unremarkable. Symmetric nephrograms. The ureters are difficult to follow although no suspicious calcifications are seen through the expected course. The bladder is nondistended. Fluid-filled nondilated loops of small bowel. Small air-fluid levels are noted of the nondilated colon and rectum. The appendix is not definitively visualized, however there is no pericecal inflammation. The uterus appears physiologic. Trace free fluid within the pelvis. No free intraperitoneal gas. No lymphadenopathy. Nonaneurysmal abdominal aorta. No acute osseous abnormality. IMPRESSION: Small air-fluid levels of the colon and rectum without dilation are likely related to diarrhea. No evidence of obstruction. Question mild intrahepatic biliary dilation. Trace free fluid within the pelvis likely physiologic. Borderline enlarged spleen, slightly larger from remote exam 12/02/2016. I have personally reviewed the images of this examination, agree with, and have edited the resident's findings and interpretation. Interpreted by: Bello Yan DO Preliminary Report By: Vidhi Mendoza Electronically signed By Bello Yan DO Dictated Date: 07/20/2022 8:47:36 PM Prelim Date: 07/20/2022 8:55:12 PM Sign Date: 07/20/2022 9:20:28 PM [facility] + Plan note Diagnostic Tests PendingUrine Culture 07/20/22 Future Scheduled TestsComplete Blood Count 07/14/22Complete Metabolic Panel 07/14/22NM Hepatobiliary Duct System Imaging 07/14/[address] [facility] 07-14-2022 Evaluation + Plan note Future Appointments Future Scheduled TestsComplete Blood Count 07/14/22Complete Metabolic Panel 07/14/[address] [facility] 07-14-2022 Evaluation + Plan note Future Scheduled TestsComplete Blood Count 07/14/22Complete Metabolic Panel 07/14/[address] [facility] Evaluation + Plan note Future Appointments Appointment Date:07/13/2022 09:00:00 AM Scheduled Provider:MONICA CAMPBELL Location:[facility] Appointment Type:PC OV Follow Up Diagnostic Tests PendingCMV DNA Detection and Quant 07/10/[address] [facility] Hospital course Narrative No data available for this section [facility] Hospital Discharge instructions No data available for this section [facility] Progress note No data available for this section [facility] Summary Purpose Family History No Family History Records FoundNo Family History Records FoundNo Family History Records FoundNo Family History Records FoundNo Family History Records FoundNo Family History Records Found Advance Directives Documents on File Type Date Recorded Patient Cabinetmaker Apprentice Expl anation Advance Directives and Living Will Power of Community Product Specialist Latest Code Status on File Code Status Date Activated Date Inactivated Comments Full Code 01/13/2018 8:18 PM 01/15/2018 7:09 PM Full Code 01/13/2018 3:15 AM 01/13/2018 8:18 PM Documents on File Type Date Recorded Patient Cabinetmaker Apprentice Expl anation ACP-Advance Directive ACP-Power of Community Product Specialist Latest Code Status on File Code Status Date Activated Date Inactivated Comments Full Code 02/21/2019 1:23 AM 02/22/2019 6:59 PM Full Code 02/20/2019 11:53 AM 02/21/2019 1:23 AM Full Code 01/13/2018 8:18 PM 01/15/2018 7:09 PM Discharge Instructions * Instructions* Colin Marquez MD - 02/19/2019 Follow up appointment with your doctor/compliance program manager - Keep next scheduled appointment Activity - Normal Activity Call your doctor/compliance program manager if you have: - Leaking fluid - Vaginal bleeding - Regular contractions: Every 5 minutes or closer for one hour - Decreased movement - Worsening abdominal (belly) pain - Headache, blurry vision, increased swelling, upper abdominal pain Treatment Verification: Anjali Howard was assessed on Labor and Delivery for a related visit on 02/19/19. Colin Marquez MD [facility] documented in this encounter* Instructions* Soni Harp DO - 01/08/2019 Follow up appointment with your doctor/compliance program manager - Keep next scheduled appointment Activity - Normal Activity Call your doctor/compliance program manager if you have: - leaking fluid - vaginal bleeding - regular contractions: More than 6 contractions in one hour - decreased movement - worsening abdominal (belly) pain - headache, blurry vision, increased swelling, upper abdominal pain Treatment Verification: Anjali Howard was assessed on Labor and Delivery for a related visit on 01/08/19. Soni Harp DO [facility] documented in this encounter History of Present Illness * Colin Marquez MD - 02/19/2019 10:33 PM EDT Department of Obstetrics and Gynecology Labor and Delivery Triage Note CHIEF COMPLAINT: Contractions HISTORY OF PRESENT ILLNESS: Anjali Howard is a 23 y.o. 39w5d. OB History 3 Para 1 Term 1 AB 1 Living 1 SAB 1 TAB Ectopic Molar Multiple Live Births 1 Patient presents with a chief complaint as above. Denies DFM/VB/LOF Denies fever chills nausea or vomiting. No other complaints. Detailed OB History: OB History Para Term AB Living 3 1 1 0 1 1 SAB TAB Ectopic Molar Multiple Live Births 1 0 0 0 0 1 # Outcome Date GA Lbr Zion/2nd Weight Sex Delivery Anes PTL Lv 3 Current 2 Term 01/13/18 41w0d 7 lb 15.7 oz (3.62 kg) F Vag-Spont EPI GARY Name: LELAND HOWARD Apgar1: 8 Apgar5: 9 1 SAB 5w0d SAB GARY Estimated Due Date: Estimated Date of Delivery: 02/21/19, Patient's last menstrual period was 05/17/2018 (exact date). PAST MEDICAL HISTORY: Past Medical History: Diagnosis Date Anemia during in third trimester 12/06/2018 Herpes simplex virus (HSV) infection 2013 herpes, treated Rh incompatibility PAST SURGICAL HISTORY: Past Surgical History: Procedure Laterality Date KNEE SURGERY Left 2014 KNEE SURGERY Left 2011 SOCIAL HISTORY: reports that she has never smoked. She has never used smokeless tobacco. She reports that she does not drink alcohol or use drugs. MEDICATIONS: Prior to Admission medications Medication Sig Start Date End Date Taking? Authorizing Provider ferrous sulfate 325 (65 Fe) MG tablet Take 1 tablet by mouth 3 times daily (with meals) 01/19/19 FAISAL Mahoney CNP valACYclovir (VALTREX) 500 MG tablet Take 1 tablet by mouth 2 times daily 01/11/19 FAISAL Mahoney CNP w/o A Vit-Fe Fum-FA (PRENATA PO) Take by mouth Historical Provider, CARE: Complicated by: None REVIEW OF SYSTEMS: Review of systems negative pertinent positives in HPI. APPEARANCE: Pain: Resting comfortably PHYSICAL EXAM: Vital Signs: VS wnl-reviewed/Respirations normal effort There were no vitals filed for this visit. Abdomen/Uterus: Gravid non tender Speculum Exam: defer heart rate: Category I Cervix: 3/50/-3 Contraction frequency: Irritability on toco Membranes: Intact RESULTS: NST: Reactive GENERAL LABS: No results found for this or any previous visit (from the past 24 hour(s)). TRIAGE COURSE: Pt was seen in triage for contractions increasing in frequency and intensity. Cervical exam 3/50/-3. FHT cat I, Vtx. Plan to recheck in [address] hernandez. Likely false labor. Plan to discharge home with return precautions. IMPRESSION: Labor ruled out DISCUSSED WITH [facility] PROVIDER: Dr Gerard DISPOSITION: Discharge to Home Associated attestation - Rebecca Herzog MD - 02/20/2019 2:29 AM EDT I reviewed and agree with the care provided by the resident/CNM/BERE during the visit including the patient's medical history, the resident's findings in the physical exam, patient's diagnosis and treatment plan. documented in this encounter* Soni Harp DO - 01/08/2019 1:45 AM EDT Department of Obstetrics and Gynecology Labor and Delivery Triage Note CHIEF COMPLAINT: r/o PPROM HISTORY OF PRESENT ILLNESS: The patient is a 23 y.o. 33w5d. OB History 3 Para 1 Term 1 AB 1 Living 1 SAB 1 TAB Ectopic Molar Multiple Live Births 1 Patient presents with a chief complaint as above. Reported underwear was wet this evening around 10 pm. Currently has BV infection and on metronidazole anaid denies DFM/VB/LOF/CTX Estimated Due Date: Estimated Date of Delivery: 02/21/19 PAST MEDICAL HISTORY: Past Medical History: Diagnosis Date Anemia during in third trimester 12/06/2018 Herpes simplex virus (HSV) infection 2013 herpes, treated Rh incompatibility PAST SURGICAL HISTORY: Past Surgical History: Procedure Laterality Date KNEE SURGERY Left 2014 KNEE SURGERY Left 2011 SOCIAL HISTORY: reports that she has never smoked. She has never used smokeless tobacco. She reports that she does not drink alcohol or use drugs. MEDICATIONS: Prior to Admission medications Medication Sig Start Date End Date Taking? Authorizing Provider metroNIDAZOLE (METROGEL) 0.75 % gel Apply topically 2 times daily. 01/05/19 01/19/19 Kurtis Leal MD ferrous sulfate 325 (65 Fe) MG tablet Take 1 tablet by mouth daily (with breakfast) 12/07/18 Lorena Richey APRN - FORGING DIE SINKER w/o A Vit-Fe Fum-FA (PRENATA PO) Take by mouth Historical Provider, CARE: Complicated by: none REVIEW OF SYSTEMS: Pertinent items are noted in HPI. APPEARANCE: Pain: no PHYSICAL EXAM: Vital Signs: VS wnl-reviewed/Respirations normal effort Vitals: 01/07/19 2345 Temp: 98.2 F (36.8 C) TempSrc: Oral Abdomen: soft, NT, ND, no rebound/guarding Uterus: gravid/non-tender LE Edema: trace Speculum Exam: no pooling of fluid seen, Nitrizine test is negative, Ferning test is negative heart rate: Category I Cervix: Visually 1 cm Contraction frequency: none Membranes: Intact RESULTS: NST: N/A GENERAL LABS: No results found for this or any previous visit (from the past 24 hour(s)). TRIAGE COURSE: SSE neg. Low suspicion for rom. Cat I toco irritable. Pt provided with precautions for home. ESSION: Leaking Fluid/ROM- ruled out DISCUSSED WITH [facility] PROVIDER: Dr. Braun DISPOSITION: Discharge to Home Associated attestation - Tomas Youngblood MD - 01/08/2019 1:58 AM EDT I reviewed and agree with the care provided by the resident during the visit including the patient's medical history, the resident's findings in the physical exam, patient's diagnosis and treatment plan. documented in this encounter Assessments Diagnosis Anemia during in third trimester care, antepartum Rubella non-immune status, antepartum Other specified complication, antepartum Herpes simplex type 2 (HSV-2) infection affecting , antepartum Rh negative state in antepartum period Rhesus isoimmunization affecting management of mother, antepartum condition Diagnosis Supervision of high risk in first trimester Unspecified high-risk Additional Source Comments INFORMATION SOURCE (unrecogn ized section and content) DATE CREATED AUTHOR AUTHOR'S ORGANIZ ATION 11/24/2017 [employer] DATE CREATED AUTHOR AUTHOR'S ORGANIZ ATION 03/04/2019 [employer] DATE CREATED AUTHOR AUTHOR'S ORGANIZ ATION 08/09/2020 [employer] DATE CREATED AUTHOR AUTHOR'S ORGANIZ ATION 07/25/2022 [employer] [facility] DATE CREATED AUTHOR AUTHOR'S ORGANIZ ATION 09/10/2022 [employer] ([place]) Reason for Visit (unrecogniz ed section and content) Care Team (unrecognized sect ion and content) Care Team Personnel Name: MONICA CAMPBELL Position: P4 Advanced Practice Nurse Member Role: Primary Care Physician Address: Address: [address] [place] [id number] [place] [address] Care Team Related Persons Name: ENEDINA HOWARD Address: Home [address] [place], [place] [id number] [place] Address: [address] [phone] Care Team Personnel Name: MONICA CAMPBELL Position: P4 Advanced Practice Nurse Member Role: Primary Care Physician Address: Address: [address] [place] [phone] [place] Name: Taina Earl RN Position: AO RN Member Role: ED RN Name: CARLOS DIAZ DO Position: AH ED Physician Member Role: Attending Physician Address: Address: [address] [place] [id number]- Name: Claribel Vargas RN Position: AO RN Member Role: ED RN Care Team Related Persons Name: ENEDINA HOWARD Address: [address] [phone] [place] Address: [address] [phone] Patient Care team informatio n (unrecognized section and content) Care Team Personnel Name: MONICA CAMPBELL ORTHOTICS PROSTHETICS ASSISTANT-FORGING DIE SINKER Position: P4 Advanced Route Sales Manager Member Role: Primary Care Physician Address: Address: [address] [place] [phone] [place] Care Team Related Persons Name: ENEDINA HOWARD Address: [address] [phone] [place] Address: [address] [phone] Care Team Personnel Name: MONICA CAMPBELL ORTHOTICS PROSTHETICS ASSISTANT-FORGING DIE SINKER Position: P4 Advanced Route Sales Manager Member Role: Primary Care Physician Address: Address: [address] [place] [phone] [place] Care Team Related Persons Name: ENEDINA HOWARD Address: [address] [phone] [place] Address: [address] [phone] FOR RECORDS PERTAINING TO PATIENTS WHO ARE OR HAVE BEEN ENROLLED IN A CHEMICAL DEPENDENCY/SUBSTANCEABUSE PROGRAM, SOME INFORMATION MAY BE OMITTED. This clinical summary was aggregated from multiple sources. Caution should be exercised in using it in the provision of clinical care. This summary normalizes information from multiple sources, and as a consequence, information in this document may materially change the coding, format and clinical context of patient data. In addition, data may be omitted in some cases. CLINICAL DECISIONS SHOULD BE BASED ON THE PRIMARY CLINICAL RECORDS. [employer] [facility]. provides no warranty or guarantee of the accuracy or completeness of information in this document.
[2023-07-11 14:24] LABS: Color, Urine Yellow (Yellow); Glucose, Dipstick Normal (Normal); Ketone-Dipstick 15 mg/dl (Negative); Leukocyte Esterase-Dipstick 100 /ul (Negative); Nitrite-Dipstick Negative (Negative); Occult Blood-Urine Negative /ul (Negative); Protein-Dipstick 30 mg/dl (Negative); Specific Gravity, Urine 1.015 (1.002-1.030); Urine Bilirubin Dipstick Negative (Negative); Urine Clarity Sl. Cloudy (Clear); Urine Urobilinogen 4 mg/dl (Normal)
[2023-07-11 14:46] LABS: Bacteria 2+ /hpf (None Seen); Squamous Epithelial Cells - UA 10-25 SEEN /hpf (5-10); White Blood Cells 5-10 SEEN /hpf (0-5)
== END | disposition home or self-care (01) ==
LOC: LABSPEC 14:18
PROVIDERS: Referring Provider Nurse Practitioner Family; Visit Provider Nurse Practitioner Family
DX: R35.0 Frequency of micturition (principal)
CPT/HCPCS: 81001; 87086

== ENCOUNTER 2023-07-21 22:18 | Emergency (ER) | payer MEDICAID, SELFPAY ==
[2023-07-21 22:20] VITALS: BP 112/82; PULSE 77; RESP 16; TEMP 35.9; O2SAT 100; BMI 21.0
--- OUTSIDE RECORDS SUMMARY | 2023-07-21 23:15 | XMS RPT_ITS | CCD ---
Author Name Unknown Address [address] [place] [address] Organization [facility] Care Team Providers Care [facility] Name Role Phone PROVIDER, UNKNOWN Unavailable Unavailable No, PCP Unavailable Unavailable PROVIDER, UNKNOWN Unavailable Unavailable PHYSICIAN, NONE Unavailable Unavailable LAUREN MAYO Unavailable Unavailable [facility] Unavailable Carolyn Espana Primary Care Provider Carolyn Jeffrey Primary Care Provider [phone] ADRIAN GARCIA, MONICA Primary Care Physician TABBY GAGNON Attending Unavailable ADRIAN GARCIA, MONICA Attending Marcy GARCIA, [facility] Primary Care Marcy PARISH MD, DR MARCELA AVITIA Attending Unav ailable ADRIAN GARCIA, [facility] Primary Care Marcy PARISH MD, DR MARCELA AVITIA Attending Unav ailable ADRIAN GARCIA, MONICA Primary Care Unavabill lable ADRIAN GARCIA, MONICA Primary Care Unavai lable CARLOS DIAZ DO Attending Unavailable ADRIAN GARCIA, MONICA Attending Unavai lable ADRIAN GARCIA, [facility] Primary Care Unavabill labjuancarlos GARCIA, MONICA Attending Marcy GARCIA, [facility] Primary Care Unavabill lable Unavailable Primary Care Provider Unavailabl e Medications Current Medications Medication Drug Class(es) Dates Sig (Normalized) Sig (Original) acetaminophen 325 mg / HYDROcodone bitartrate 5 mg oral tablet (1 source) Opioid Agonist Start: 09-02-2022 End: 09-05-2022 take 1 tablet by mouth every four hours as needed for pain [place] 325- 5 mg oral tablet Dose = 1 tab(s), Oral, q4h, PRN PRN for pain, X 3 day(s), # 20 tab(s), 0 Refill(s), Pharmacy: [facility]/pharmacy #[id number], Acute post-operative pain, 160, cm, 09/02/22 11:31:00 [...] Non-Invasive [address] MARCELA PARISH MD [facility] 09-02-2022 15:30-0400 Heart rate 90 /min DR MARCELA PARISH MD [facility] 09-02-2022 15:30-0400 Respiratory rate 17 /min DR MARCELA PARISH MD [facility] 09-02-2022 15:30-0400 Systolic Blood Pressure Non-Invasive [address] MARCELA PARISH MD [facility] 09-02-2022 15:20-0400 Diastolic Blood Pressure Non-Invasive [address] MARCELA PARISH MD [facility] 09-02-2022 15:20-0400 Heart rate 81 /min DR MARCELA PARISH MD [facility] 09-02-2022 15:20-0400 Respiratory rate 12 /min DR MARCELA PARISH MD [facility] 09-02-2022 15:20-0400 Systolic Blood Pressure Non-Invasive [address] MARCELA PARISH MD [facility] 09-02-2022 15:05-0400 Body temperature 97.16 [degF] DR MARCELA PARISH MD [facility] 09-02-2022 15:05-0400 Diastolic Blood Pressure Non-Invasive [address] MARCELA PARISH MD [facility] 09-02-2022 15:05-0400 Heart rate 86 /min DR MARCELA PARISH MD [facility] 09-02-2022 15:05-0400 Respiratory rate 14 /min DR MARCELA PARISH MD [facility] 09-02-2022 15:05-0400 Systolic Blood Pressure Non-Invasive [address] MARCELA PARISH MD [facility] 09-02-2022 14:24-0400 Body temperature 96.08 [degF] DR MARCELA PARISH MD [facility] 09-02-2022 14:15-0400 Respiratory Rate - Anes 20 br/min DR MARCELA PARISH MD [facility] 09-02-2022 14:10-0400 Respiratory Rate - Anes 20 br/min DR MARCELA PARISH MD [facility] 09-02-2022 14:05-0400 Respiratory Rate - Anes 0 br/min DR MARCELA PARISH MD [facility] 09-02-2022 11:31-04[address] Pressure Cuff Size DR MARCELA PARISH MD [facility] 09-02-2022 11:31-[address] MARCELA PARISH MD [facility] 09-02-2022 11:31-[address] MARCELA SOLIS MD [facility] 09-02-2022 11:31-0400 Body height [address] MARCELA PARISH MD [facility] 09-02-2022 11:31-0400 Body temperature 98.06 [degF] DR MARCELA PARISH MD [facility] 09-02-2022 11:31-0400 Body weight [address] MARCELA PARISH MD [facility] 09-02-2022 11:31-0400 Body weight 19.53 kg/m2 DR MARCELA PARISH MD [facility] 09-02-2022 11:31-0400 Heart rate 80 /min DR MARCELA PARISH MD [facility] 08-31-2022 09:06-0400 Body height [address] MARCELA PARISH MD [facility] 08-31-2022 09:06-0400 Body weight [address] MARCELA PARISH MD [facility] 07-20-2022 21:38-0500 Diastolic Blood Pressure Non-Invasive 58 1 CARLOS FROMDEDRAT DO [facility] 07-20-2022 21:38-0500 Heart rate 72 /min CARLOS FROMMELT DO [facility] 07-20-2022 21:38-0500 Respiratory rate 16 /min CARLOS FROMDEDRAT DO [facility] 07-20-2022 21:38-0500 Systolic Blood Pressure Non-Invasive 110 1 CARLOS FROMMELT DO [facility] 07-20-2022 18:18-0500 Body temperature 98.78 [degF] CARLOS FROMMELT DO [facility] 07-20-2022 18:18-0500 Diastolic Blood Pressure Non-Invasive 74 1 CARLOS FROMMELT DO [facility] 07-20-2022 18:18-0500 Heart rate 108 /min CARLOS FROMMELT DO [facility] 07-20-2022 18:18-0500 Respiratory rate 16 /min CARLOS FROMMELT DO [facility] 07-20-2022 18:18-0500 Systolic Blood Pressure Non-Invasive 112 1 CARLOS COFFEYMELT DO [facility] 02-19-2019 21:40-0400 Body Temperature 98.29 [degF] [facility] [place] [facility] 21:40-0400 BP Diastolic 79 mm[facility]Hg[facility] [place] [facility]-2019 21:40-0400 BP Systolic 123 mm[Hg] [facility] [place] 02-19-2019 21:40-0400 Pulse (Heart Rate) 109 /[facility] [place] [facility]-19-2019 21:40-0400 Respiratory Rate 16 /min [facility] [place] 01-08-2019 01:35-0400 Pulse (Heart Rate) 85 /min [facility] [place] 01-07-2019 23:59-0400 BP Diastolic 72 mm[Hg] [facility] [place] 01-07-2019 23:59-0400 BP Systolic 112 mm[Hg] [facility] [place] 01-07-2019 23:45-0400 Body Temperature 98.2 [degF] [facility] [place] Encounters Encounter Date Encounter Type Care Provider Facility Start: 09-02-2022 End: 09-02-[address] MARCELA PARISH MD Facility:B Start: 09-02-2022 End: 09-02-[address] MARCELA PARISH MD [facility] Start: 08-31-2022 End: 09-01-[address] MARCELA PARISH MD Facility:B Start: 08-31-2022 End: 08-31-[address] MARCELA PARISH MD [facility] Start: 08-14-2022 End: 08-15-2022 ambulatory MONICA CAMPBELL APRN-GEOGRAPHIC INFORMATION SYSTEM SURVEYOR Facility:B Start: 07-21-2022 Telephone encounter Tabby ludwig MD Work Phone: [facility] Start: 07-20-2022 End: 07-20-2022 Emergency department patient visit MONICA CAMPBELL FERRY PILOT-GEOGRAPHIC INFORMATION SYSTEM SURVEYOR Facility:B Start: 07-20-2022 End: 07-20-2022 Emergency department patient visit CARLOS DIAZ DO [facility] Start: 07-10-2022 End: 07-11-2022 ambulatory MONICA CAMPBELL FERRY PILOT-GEOGRAPHIC INFORMATION SYSTEM SURVEYOR Facility:B Start: 07-10-2022 End: 07-10-2022 Patient encounter procedure MONICA CAMPBELL FERRY PILOT-GEOGRAPHIC INFORMATION SYSTEM SURVEYOR [facility] Start: 07-08-2022 End: 07-09-2022 ambulatory MONICA CAMPBELL FERRY PILOT-GEOGRAPHIC INFORMATION SYSTEM SURVEYOR Facility:B Start: 07-07-2022 End: 07-07-2022 ambulatory [facility] Start: 07-07-2022 End: 07-07-2022 Encounter for gynecological examination (general) (routine) without abnormal findings [facility] Start: 08-01-2020 RhD negative Lorena Richey [facility] Work Phone: Start: 08-01-2020 End: 08-01-2020 Subsequent hospital visit by physician Lorena Richey Work Phone: [facility] Laboratory Procedures Date Procedure Procedure Detail Performing Clinician Start: 09-02-[address] MARIANGEL PARISH MD Plan of Treatment Date Care Activity Detail Author Start: 2046 Zoster Vaccines (1 of 2) Zoster Vaccines (1 of 2) [facility] Start: 07-07-2025 Screening for malignant neoplasm of cervix Pap Smear [facility] Start: 01-29-2023 Influenza vaccination Influenza Vaccine (#1) [facility] Start: 08-04-2021 DTaP/Tdap/Td vaccine (7 - Td) DTaP/Tdap/Td vaccine (7 - Td) [facility] Work Phone: Start: 08-04-2021 DTaP/Tdap/Td Vaccines (7 - Td or Tdap) DTaP/Tdap/Td Vaccines (7 - Td or Tdap) [facility] Start: 08-01-2021 Screening for Chlamydia trachomatis Chlamydia screen [facility] Work Phone: Start: 07-28-2021 Cervical cancer screen Cervical cancer screen [place], [place] Start: 07-28-2021 Screening for malignant neoplasm of cervix Cervical cancer screen [facility] Work Phone: Start: 08-16-2020 End: 08-16-2020 Routine 08/16/2020 Routine Obstetrics and Gynecology Sweetie Mcelroy MD [address] [place], [place] [id number] [facility] Start: 01-30-2020 Influenza vaccination Flu vaccine (#1) [facility] Work Phone: Start: 07-28-2019 Chlamydia screen Chlamydia screen [place], [place] Start: 03-22-2019 Varicella vaccination Varicella Vaccines (2 of 2 - 2-dose childhood series) [facility] Start: 02-24-2019 End: 02-24-2019 Routine 02/24/2019 Routine Obstetrics and Gynecology Sweetie Mcelroy MD [address] [place] [address] [address] [place] [address] [phone] [facility] Start: 01-29-2019 Influenza vaccination Flu vaccine (#1) [place] Start: 01-26-2019 End: 01-26-2019 Procedure visit [facility] HEALTHCARE ADMINISTRATIVE ASSISTANT Start: 01-11-2019 End: 01-11-2019 Routine 01/11/2019 Routine Obstetrics and Gynecology Lorena Richey APRN - VADIM [address] [place], [place] [id number] [facility] HEALTHCARE ADMINISTRATIVE ASSISTANT Start: 11-29-2015 DTaP/Tdap/Td vaccine (1 - Tdap) DTaP/Tdap/Td vaccine (1 - Tdap) [place] Start: 2012 COVID-19 Vaccine (1 of 2) COVID-19 Vaccine (1 of 2) [facility] Work Phone: Start: 11-29-2011 HPV vaccine (1 - Female 3-dose series) HPV vaccine (1 - Female 3-dose series) [place] Start: 2009 Varicella Vaccine (1 of 2 - 13+ 2-dose series) Varicella Vaccine (1 of 2 - 13+ 2-dose series) [place] Start: 2008 Depression Screening Depression Screening [facility] Start: 11-29-2007 HPV vaccine (1 - 2-dose series) HPV vaccine (1 - 2-dose series) [facility] Work Phone: Start: 11-29-2007 HPV Vaccines (1 - 2-dose series) HPV Vaccines (1 - 2-dose series) [facility] Start: 2000 Varicella vaccine (2 of 2 - 2-dose childhood series) Varicella vaccine (2 of 2 - 2-dose childhood series) [facility] Work Phone: Start: 05-31-1997 COVID-19 Vaccine (#1) COVID-19 Vaccine (#1) [facility] End: 08-01-2020 Hemoglobin Fractionation Profile Hemoglobin Fractionation Profile Lab Routine Supervision of high risk in first trimester 1 Occurrences starting 08/01/2020 until 08/01/2020 [facility] Work Phone: Immunizations Immunization Date Immunization Notes Care Provider Mason dobson 02-22-2019 measles, mumps and rubella virus vaccine Lorena Richey [facility] 02-22-2019 measles/mumps/rubell a virus vaccine MONICA CAMPBELL FERRY PILOT-GEOGRAPHIC INFORMATION SYSTEM SURVEYOR [facility] Payers Date Payer Category Payer Medicaid 2018 Unknown [employer] [id number] 2018-Present [phone] [address] [place] [address] [id number] 2018 Unknown xxxxxxxxxxx [id number] 2016 Medicaid [id number] 1996 Unknown [id number] 1996 Unknown [id number] 1996 Unknown [id number] 1996 Unknown [id number] 1996 Unknown [id number] 1996 Unknown [id number] Social History Date Type Detail Facility Start: 02-16-2019 End: 06-29-2022 Tobacco smoking status [facility] Never smoker [facility] Start: 02-16-2019 End: 07-07-2022 Alcohol intake No [facility] Start: 05-31-2018 Julienne [place] Start: 1995 Sex Assigned At Not on file [place], [place] Start: 08-01-2020 Tobacco use and exposure Never used [facility] Work Phone: Start: 08-01-2020 End: 07-07-2022 Alcohol intake Current non-drinker of alcohol (finding) [facility] Work Phone: Sex Assigned At Sex [facility] Start: 07-07-2022 Alcohol intake [facility] Within the last year , have you been afraid of your partner or ex-partner? No [facility] Frequency of Social Gatherings with Friends and Family Not on file [facility] Are you now , , , , never or living with a partner? [facility] How often to you hav e a drink containing alcohol? Monthly or less [facility] How many standard drinks containing alcohol do you have on a typical day? 1 or 2 [facility] How often do you hav e 6 or more drinks on 1 occasion? Never [facility] Do you feel stress - tense, restless, nervous, or anxious, or unable to sleep at night because your mind is troubled all the time - these days [OSQ] Not at all [facility] (I/We) worried whezara er (my/our) food would run out before (I/we) got money to buy more. Never true [facility] Start: 06-03-2022 Gender identity Identifies as female gender (finding) [facility] Start: 06-27-2022 End: 07-07-2022 Exposure to SARS-CoV-2 (event) Not sure [facility] Functional Status Date Assessment Result Facility 09-02-2022 Functional Status ice on [facility] 09-02-2022 Functional Status Maintained [facility] 08-31-2022 Functional Status Sensory Deficits None A [facility] 07-20-2022 Functional Status Assistive Device None A [facility] 07-20-2022 Functional Status ID band on, Call device within reach, Bed in low position, Wheels locked, Upper/Half-Length side-rails up, Visitor at bedside [facility] Mental Status Date Assessment Result Facility 09-02-2022 Mental Status Orientation Oriented x 4 [facility] 09-02-2022 Mental Status [facility] 07-20-2022 Mental Status Orientation Oriented x 4 [facility] 07-20-2022 Mental Status [facility] Clinical Notes 07-14-2022 to 09-02-2022 Telephone Encounter [...] before eating solid foods. General instructions Take gjhm-dqc-gaiqsnj and prescription medicines only as told by [...] 09/06/2016 Document Revised: 08/15/2018 Document Reviewed: 09/06/2016 [employer] Patient Education 2020 [employer]. 09/02/2022 15:28:49 Laparoscopic Cholecystectomy, Care After Laparoscopic [...] and water are not available, use hand senior manufacturing test engineer. ?Change your dressing as told by your [...] health care provider approves. General instructions Take yzxo-aku-idyvwbn and prescription medicines only as told by your health care provider. To prevent or treat constipation while you are taking prescription pain medicine, your health care provider may recommend that you: ?Drink enough fluid to keep your urine clear or pale yellow. ?Take eqje-jor-kxfwfsv or prescription medicines. ?Eat foods that are [...] 05/17/2006 Document Revised: 04/29/2018 Document Reviewed: 11/02/2016 [employer] Patient Education 2020 [employer]. Follow Up Care 08/27/2022 08:17:37 With:MARCELA PARISH JR, MD, Surgery Address: [address] [address]- When:Within 3 Week(s) Comments:Call office to make appointment. [facility] 09-02-2022 Summary of episod e note Discharge Instructions Thank you for allowing [facility] to assist you with your healthcare needs. The following is important discharge information regarding your hospital visit. Your Care Team MONICA CAMPBELL APRN-GEOGRAPHIC INFORMATION SYSTEM SURVEYOR Your Diagnosis Acute post-operative pain What to do next Instructions From Your Doctor OK to resume nursing Follow Up Appointments Follow Up with MARCELA PARISH JR, MD, Surgery When In 3 weeks Why: Call office to make appointment. Where: [address] [facility] [address] [place] [address]- The Following Activity and Diet Have Been [...] When Why Instructions Last Dose New acetaminophen-hydrocodone ([place] 325- 5 mg oral tablet) 1 tab(s) by mouth Every 4 hours as needed for for pain Acute post-operative pain Duration: 3 Days Pickup at [facility]/pharmacy #[id number] Pharmacy Information [facility]/pharmacy #[id number]: [address] [place], [place] [phone] Please take this list to your next [...] and ashlyn misha KOE done) Hycet, Lorcet, [place], Verdrocet, Vicodin, Xodol, Zamicet What is the [...] may report side effects to FDA at [phone]-[phone]. What other drugs will affect acetaminophen and [...] affect acetaminophen and hydrocodone, including prescription and bmha-zqd-elbodek medicines, vitamins, and herbal products. Not all [...] to ensure that the information provided by [employer]. ('[employer]') is accurate, up-to-date, and complete, but no guarantee is made to that effect. Drug information contained herein may be time sensitive. Room 77 information has been compiled for use by healthcare practitioners and consumers in the [place] and therefore Room 77 does not warrant that uses outside of the [place] are appropriate, unless specifically indicated otherwise. [employer] drug information does not endorse drugs, diagnose patients or recommend therapy. [employer] drug information is an informational resource designed [...] effective or appropriate for any given patient. Room 77 does not assume any responsibility for any aspect of healthcare administered with the aid of information Room 77 provides. The information contained herein is not intended to cover all possible uses, directions, precautions, warnings, drug interactions, allergic reactions, or adverse effects. If you have questions about the drugs you are taking, check with your doctor, nurse or pharmacist. Copyright 0780-1965 [employer]. Version: 16.03. Revision Date: 07/02/2020. Education Materials [...] before eating solid foods. General instructions Take xgew-vtg-mubjxpm and prescription medicines only as told by [...] 09/06/2016 Document Revised: 08/15/2018 Document Reviewed: 09/06/2016 [employer] Patient Education 2020 [employer] Laparoscopic Cholecystectomy, Care After This sheet [...] and water are not available, use hand senior manufacturing test engineer. ? Change your dressing as told by [...] health care provider approves. General instructions Take chrw-xoj-tdwhfpf and prescription medicines only as told by your health care provider. To prevent or treat constipation while you are taking prescription pain medicine, your health care provider may recommend that you: ? Drink enough fluid to keep your urine clear or pale yellow. ? Take gmrn-trh-yxcxgnm or prescription medicines. ? Eat foods that [...] 05/17/2006 Document Revised: 04/29/2018 Document Reviewed: 11/02/2016 [employer] Patient Education 2020 [employer]. Additional Information VACCINATE! IT SAVES LIVES! Members of the community who have not yet received the COVID-19 vaccine and would like to receive it can visit one of [facility] vaccine clinics. There are many vaccine clinic locations within the [facility]. For locations and available times, please visit https://gettheshot.coronavirus.o hio.gov/. It is important to note that some COVID mobile vaccine clinics are held outdoors and may be canceled in rainy or stormy conditions. To learn more about pediatric vaccinations (ages 5-11), we invite you to visit the [facility] webpage. https://www.[facility].org/p ages/6347-Kheki-Xmsmbxhwlac-Freq ietqyj-Htxir-Vspioocsr.html To learn more about the COVID-19 vaccine, we invite you to visit the CDC website for a list of frequently asked questions. https://www.cdc.gov/coronavirus/ 2019-ncov/vaccines/faq.html [facility] Patient Portal Access Instructions: Stay connected with your healthcare team and access your personal medical information anytime with the [facility] Patient Portal.If you would like a full copy of your medical records, please contact the [facility] Medical Records Department, Wednesday through Wednesday between 8a.m. and 4:30p.m. Please follow the directions below to access the portal: 1.Access the email account you provided upon registration to the [facility].2.Look for an invitation email from [facility].3.Open the email and access the invitation link: Accept Invitation to [facility]4.Fill in the required chung to create your account. Sign into [email or web address] with your username and password that you [...] you will allow to register on the [facility] Patient Portal for access to your information. You can also access the [facility] Patient Portal on the [employer]. Simply click on Health Records under Health Data and then click on the [email or web address] logo. HOW TO SAFELY DISPOSE OF PRESCRIPTION [...] Call your local pharmacy or go to [email or web address] square nv.Coupz/[email or web address] to find one close to you.3.Make use of household items: Use cat litter or old coffee grounds to dispose medications if other options are not available. Mix your drugs with these household products, seal them in an airtight container and throw it into the garbage. Call [facility]: [phone] to be sure your drugs can be [...] aware that I should contact my doctor. Patient/Levi Maker Signature: Date/Time: Relationship to Patient: Witness Name/Signature: Date/Time: [facility] 09-02-2022 Anesthesiology Consult note Patient: ANJALI HOWARD Age: 26 years Sex: Female : 1995 Associated Diagnoses: None Author: AMBER FAITH FERRY PILOT-DIRECTOR MEDICAID Preoperative Information Time of last food or [...] list: Medical Abdominal pain / SNOMED CT 71332995 / Confirmed Elevated liver enzymes / SNOMED CT 2507556534 / Confirmed Neutropenia / SNOMED CT 644858144 / Confirmed Right upper quadrant abdominal pain / SNOMED CT 154566712 / Confirmed Splenomegaly / SNOMED CT 90988136 / Confirmed, Active Problems (5) Abdominal pain Elevated liver enzymes Neutropenia Right upper quadrant abdominal pain Splenomegaly Histories Past Medical History: No active or resolved past medical history items have been selected or recorded. Family History: Cancer Grandparent Comments: 06/29/2022 13:53 Laurita Tinsley CMA thyroid cancer Breast cancer Maternal Aunt Cholecystectomy Mother Grandparent Diabetes Grandparent Procedure history: Tear meniscus ([id number]) in 2013 at 17 Years. Comments: 06/29/2022 [...] Resp Rate L 12br/min (SEP 02 11:31) XRO028 mmHg (SEP 02 11:) DBP65 mmHg (SEP 02 11:) BMI19.53 (SEP 02 11:31) Measurements from flowsheet : Measurements 09/02/2022 11:31 EDT Height 160 cm Admission Weight 50 kg Weight Method Stated [place] Body Weight 52.38 kg Body Mass Index [...] Surgeon SN - CAt - Role Performed DIRECTOR MEDICAID SN - CAt - Role Performed Director Of Outside Sales 1 SN - CAt - Role Performed Scrub 2 SN - CAt - Role Performed Scrub 1 SN - CAt - Role Performed Turkey Farmer 1 09/02/2022 11:49 EDT SN - Preop [...] Admission Weight 50 kg Weight Method Stated [place] Body Weight 52.38 kg Body Mass Index [...] per patient Skin Temperature Warm Skin Description [employer], Dry Skin Integrity Intact Neurological Symptoms Patient [...] Weeks No Weight Loss No Allergies No Second Language Tutor On Yes Consent Form Signed Yes Patient Dressed In Hospital gown CHG Preoperative Wash/Wipe Night before procedure, Day of procedure CHG Skin Prep Completed for Eligible Surgery History & Physical Update On Chart Yes History & Physical On Chart Yes Obstructive Sleep Apnea Assess Completed Yes Safety Brochure Information Reviewed Unable to complete [facility] Video Viewed No Barriers to Learning None evident Teaching Method Explanation, Printed materials Teaching Evaluation Verbalizes/Nonverbally indicates understanding Preferred Written Language Equ[place] Preferred Spoken Language [place] Information Given by Patient Patient's Current [...] QC PRGUP Positive . Assessment and Plan [place] [employer] Anesthesiologists (ASA) physical status classification: Class I. Anesthetic Preoperative Plan Premedication: intravenous. Anesthetic technique: General. Induction: intravenously. Maintenance airway: Oral endotracheal tube. Special Monitoring. Postoperative pain management: Per surgeon. Risks discussed: nausea, vomiting, sore throat. Informed consent: signed by patient. Digitally Signed by AMBER FAITH on 09/02/2022 01:29 PM [facility] 07-22-2022 Note . MICRO - Microbiology PROCEDURE: Urine Culture [*1] SOURCE: Urine BODY SITE: COLLECTED DATE/TIME: 07/20/2022 21:35 EST RECEIVED DATE/TIME: 07/21/2022 14:06 EST START DATE/TIME: 07/21/2022 14:07 EST FREE TEXT SOURCE: FINAL REPORTS Final Report [] Verified Date/Time/Personnel: 07/22/2022 09:25 EST <10,000 cfu/ml. No Significant growth. Sensitivity not indicated. Performing Locations *1: This test was performed at: [facility], [address] [place] [address], [facility] , [facility] ([place]) 07-21-2022 Note Patient called hiral osborne pap and counseling provided [facility] 07-21-2022 Telephone encounter Note Patient called regarding pap and counseling provided [facility] 07-21-2022 Miscellaneous Notes Patient called regarding pap and counseling provided documented in this encounter [facility] 07-20-2022 Hospital Discharg e instructions Patient Education [...] or water and you are getting dehydrated [phone] [employer]. [address] [place] [address], [place] [address]. All rights reserved. This information is not [...] If needed, more treatment may be started. [phone] [employer]. [address] [place] [address]. All rights reserved. This information is not intended as a substitute for professional medical care. Always follow your healthcare professional's instructions. Follow Up Care 07/20/2022 18:15:10 With:SHARI DAVILA MD Address: [address] [phone] When:2-4 days [facility] 07-20-2022 Note Discharge Instructions Thank you for allowing [facility] to assist you with your healthcare needs. [...] When Within 2-4 days Where: [address] [address] [phone] Allergies NKA Medications Please ask your primary [...] or water and you are getting dehydrated [phone] [employer]. [address] [place] [address], [place] [address]. All rights reserved. This information is not [...] If needed, more treatment may be started. [phone] [employer]. [address] [place] [address]. All rights reserved. This information is not intended as a substitute for professional medical care. Always follow your healthcare professional's instructions. Additional Information VACCINATE! IT SAVES LIVES! Members of the community who have not yet received the COVID-19 vaccine and would like to receive it can visit one of [facility] vaccine clinics. There are many vaccine clinic locations within the [facility]. For locations and available times, please visit [email or web address] [email or web address] It is important to note that some COVID mobile vaccine clinics are held outdoors and may be canceled in rainy or stormy conditions. To learn more about pediatric vaccinations (ages 5-11), we invite you to visit the [facility] webpage. [email or web address]/p [email or web address]-Grpsa-Bdghtvvtehs-Freq [email or web address]-[email or web address]-[email or web address].html To learn more about the COVID-19 vaccine, we invite you to visit the CDC website for a list of frequently asked questions. https://www.cdc.gov/coronavirus/ 2019-ncov/vaccines/faq.html [facility] Patient Portal Access Instructions: Stay connected with your healthcare team and access your personal medical information anytime with the [facility] Patient Portal. If you would like a full copy of your medical records please contact the [facility] Medical Records Department Wednesday through Wednesday between 8a.m. and 4:30p.m. Please follow the directions below to access the portal: 1.Access the email account you provided upon registration to the [facility].2.Look for an invitation email from [facility].3.Open the email and access the invitation link: Accept Invitation to [facility]4.Fill in the required chung to create your [...] you will allow to register on the [facility] Patient Portal for access to your information. You can also access the [facility] Patient Portal on the [employer] bere. Simply click on Health Records under [...] Call your local pharmacy or go to [email or web address] [email or web address] to find one close to you.3.Make use of household items: Use cat litter or old coffee grounds to dispose medications if other options are not available. Mix your drugs with these household products, seal them in an airtight container and throw it into the garbage. Call [facility]: [phone] to be sure your drugs can be [...] aware that I should contact my doctor. Patient/Levi Maker Signature: Date/Time: Relationship to Patient: Witness Name/Signature: Date/Time: [facility] 07-20-2022 Note ORIGINAL EXAMINATION: CT OF [...] Sign Date: 07/20/2022 9:20:28 PM Ordering Provider: [facility] 07-20-2022 Note ORIGINAL EXAMINATION: CT OF THE [...] Date: 07/20/2022 9:20:28 PM [facility] Evaluation + Plan note Diagnostic Tests PendingUrine Culture 07/20/22 Future Scheduled TestsComplete Blood Count 07/14/22Complete Metabolic Panel 07/14/22NM Hepatobiliary Duct System Imaging 07/14/22 [facility] 07-14-2022 Evaluation + Plan note Future Appointments Future Scheduled TestsComplete Blood Count 07/14/22Complete Metabolic Panel 07/14/22 [facility] 07-14-2022 Evaluation + Plan note Future Scheduled TestsComplete Blood Count 07/14/22Complete Metabolic Panel 07/14/22 [facility] Evaluation + Plan note Future Appointments Appointment Date:07/13/2022 09:00:00 AM Scheduled Provider:MONICA CAMPBELL Location:[facility] Appointment Type:PC OV Follow Up Diagnostic Tests PendingCMV DNA Detection and Quant 07/10/22 [facility] Hospital course Narrative No data available for this section [facility] Hospital Discharge instructions No data available for this section [facility] Progress note No data available for this section [facility] Summary Purpose Family History No Family History Records FoundNo Family History Records FoundNo Family History Records FoundNo Family History Records FoundNo Family History Records FoundNo Family History Records Found Advance Directives Documents on File Type Date Recorded Patient Levi Maker Expl anation Advance Directives and Living Will Power of Kindergarten Paraprofessional Latest Code Status on File Code Status Date Activated Date Inactivated Comments Full Code 01/13/2018 8:18 PM 01/15/2018 7:09 PM Full Code 01/13/2018 3:15 AM 01/13/2018 8:18 PM Documents on File Type Date Recorded Patient Levi Maker Expl anation ACP-Advance Directive ACP-Power of Kindergarten Paraprofessional Latest Code Status on File Code Status Date Activated Date Inactivated Comments Full Code 02/21/2019 1:23 AM 02/22/2019 6:59 PM Full Code 02/20/2019 11:53 AM 02/21/2019 1:23 AM Full Code 01/13/2018 8:18 PM 01/15/2018 7:09 PM Discharge Instructions * Instructions* Colin Marquez MD - 02/19/2019 Follow up appointment with your doctor/industrial roofer - Keep next scheduled appointment Activity - Normal Activity Call your doctor/industrial roofer if you have: - Leaking fluid - Vaginal bleeding - Regular contractions: Every 5 minutes or closer for one hour - Decreased movement - Worsening abdominal (belly) pain - Headache, blurry vision, increased swelling, upper abdominal pain Treatment Verification: Anjali Howard was assessed on Labor and Delivery for a related visit on 02/19/19. Colin Marquez MD [facility] documented in this encounter* Instructions* Soni Harp DO - 01/08/2019 Follow up appointment with your doctor/industrial roofer - Keep next scheduled appointment Activity - Normal Activity Call your doctor/industrial roofer if you have: - leaking fluid - vaginal bleeding - regular contractions: More than 6 contractions in one hour - decreased movement - worsening abdominal (belly) pain - headache, blurry vision, increased swelling, upper abdominal pain Treatment Verification: Anjali Howard was assessed on Labor and Delivery for a related visit on 01/08/19. Soni Harp DO [facility] documented in this encounter History of Present [...] precautions. IMPRESSION: Labor ruled out DISCUSSED WITH [facility] PROVIDER: Dr Gerard DISPOSITION: Discharge to Home [...] (with breakfast) 12/07/18 Lorena Richey APRN - GEOGRAPHIC INFORMATION SYSTEM SURVEYOR w/o A Vit-Fe Fum-FA (PRENATA PO) Take [...] DATE CREATED AUTHOR AUTHOR'S ORGANIZ ATION 11/24/2017 [employer] DATE CREATED AUTHOR AUTHOR'S ORGANIZ ATION 03/04/2019 [employer] DATE CREATED AUTHOR AUTHOR'S ORGANIZ ATION 08/09/2020 [employer] DATE CREATED AUTHOR AUTHOR'S ORGANIZ ATION 07/25/2022 [employer] [facility] DATE CREATED AUTHOR AUTHOR'S ORGANIZ ATION 09/10/2022 [employer] ([place]) Reason for Visit (unrecogniz ed section and content) Care Team (unrecognized sect ion and content) Care Team Personnel Name: MONICA CAMPBELL Position: P4 Advanced Practice Nurse Member Role: Primary Care Physician Address: Address: [address] [place] [phone] [place] [address] Care Team Related Persons Name: ENEDINA HOWARD Address: Home [address], [place] [phone] [place] Address: [address] [phone] Care Team Personnel Name: MONICA CAMPBELL Position: P4 Advanced Practice Nurse Member Role: Primary Care Physician Address: Address: [address] [place] [phone]- [place] Name: Taina Earl RN Position: AO RN Member Role: ED RN Name: CARLOS DIAZ DO Position: AH ED Physician Member Role: Attending Physician Address: Address: [address] [place] [address]- Name: Claribel Vargas RN Position: AO RN Member Role: ED RN Care Team Related Persons Name: ENEDINA HOWARD Address: [address] [phone] [place] Address: [address] [phone] Patient Care team informatio n (unrecognized section and content) Care Team Personnel Name: MONICA CAMPBLEL FERRY PILOT-GEOGRAPHIC INFORMATION SYSTEM SURVEYOR Position: P4 Advanced Director Of Outside Sales Member Role: Primary Care Physician Address: Address: [address] [place] [phone] [place] Care Team Related Persons Name: ENEDINA HOWARD Address: [address] [phone] [place] Address: [address] [phone] Care Team Personnel Name: MONICA CAMPBELL FERRY PILOT-GEOGRAPHIC INFORMATION SYSTEM SURVEYOR Position: P4 Advanced Director Of Outside Sales Member Role: Primary Care Physician Address: Address: [address] [place] [phone]- [place] Care Team Related Persons Name: ENEDINA HOWARD Address: [address] [phone] [place] Address: [address] [phone] FOR RECORDS PERTAINING TO PATIENTS WHO ARE [...] BE BASED ON THE PRIMARY CLINICAL RECORDS. [employer] [facility]. provides no warranty or guarantee of the accuracy or completeness of information in this document.
[2023-07-21 23:38] LABS: Red Blood Cells-Urine 0 SEEN /hpf (0-5)
[2023-07-22 00:16] LABS: Color, Urine Yellow (Yellow); Glucose, Dipstick Normal (Normal); Ketone-Dipstick Negative (Negative); Leukocyte Esterase-Dipstick 25 /ul (Negative); Nitrite-Dipstick Negative (Negative); Occult Blood-Urine 10 /ul (Negative); Protein-Dipstick 15 mg/dl (Negative); Specific Gravity, Urine 1.025 (1.002-1.030); Urine Bilirubin Dipstick Negative (Negative); Urine Clarity Clear (Clear); Urine Urobilinogen 1 mg/dl (Normal)
[2023-07-22 00:17] LABS: Internal QC Validated? YES +Cl - CLEAR BKGD; Pregnancy, Urine Negative Negative
[2023-07-22 00:27] LABS: Bacteria 1+ /hpf (None Seen); Mucous, Urine 2+ /hpf (<or=2+); Squamous Epithelial Cells - UA 10-25 SEEN /hpf (5-10); White Blood Cells 0-5 SEEN /hpf (0-5)
--- NOTE | 2023-07-22 00:41 | EX.ED.DYSGE1 ---
HPI History of Present Illness Chief Complaint: Complaint Informant: patient Narrative Narrative: Patient is a 27-year-old female with no reported significant past medical history. She states roughly 1 to 2 weeks ago she had urinary frequency and dysuria and went to an urgent care and they told her she had a UTI . She states she took 5 days of antibiotics and felt better. She states has been off the medications now for about 3 to 5 days and has now noticed return of urinary frequency and urgency with low back pain. She states symptoms feel similar nature to her recent UTI and has this returned so quickly presents for evaluation. She denies any vaginal discharge or bleeding or concern for or concern for STD. She denies any history of immunosuppression. [facility] Medical History Anemia affecting Genital herpes affecting Physical exam, pre-employment Vaginal delivery Home Medications cephalexin 500 mg capsule 500 mg PO TID 7 days #21 caps 07/22/23 [Rx Last Taken Unknown] phenazopyridine 200 mg tablet (Pyridium) 200 mg PO TID PRN pain 3 days #9 tabs 07/22/23 [Rx Last Taken Unknown] Allergy/AdvReac Type Severity Reaction Status Date / Time No Known Allergies Allergy Verified 07/21/23 22:19 Family History Mother Cholelithiasis Surgical History S/P left knee surgery Social History household members: children Smoking Status: Never smoker alcohol intake: never substance use type: does not use caffeine: Yes additional social history: - Terell-Works at [employer] Patient is stay at home mom [facility] ED Constitutional Constitutional ED: Denies chills or fever(s) ENT ENT ED: Denies sore throat Cardiovascular Cardiovascular: Denies chest pain Respiratory/Chest Respiratory/Chest: Denies cough or dyspnea Gastrointestinal Gastrointestinal: Reports abdominal pain; Denies diarrhea, nausea or vomiting Genitourinary Genitourinary ED: Reports dysuria and urinary frequency; Denies hematuria Musculoskeletal Musculoskeletal: Reports back pain Integumentary Denies rash Neurologic Neurologic: Denies headache(s) Hematologic/Lymphatic Hematologic/Lymphatic: Denies easy bleeding or easy bruising EXAM Physical Exam Const Vital Signs: 07/21/23 22:20 Temperature 96.7 F L Temperature Source Temporal Pulse Rate 77 Respiratory Rate 16 Blood Pressure 112/82 H Blood Pressure Mean 92 Pulse Ox 100 Oxygen Delivery Method Room Air Positive well nourished and well developed General Appearance ED: well developed HEENT HEENT Narrative: Normocephalic atraumatic Eyes PERRL and EOMs intact bilaterally General Eye ED: Negative for scleral icterus Neck supple Resp normal respiratory effort and clear to auscultation bilaterally Cardio regular rate and regular rhythm GI non-distended GI Narrative: Abdomen is soft and nondistended with normal active bowel sounds. Patient has pain on palpation in the suprapubic region. Otherwise no voluntary guarding or rigidity. No pulsatile mass or fluid wave. No organomegaly noted. Negative heel strike psoas and obturator signs. Auscultation: normoactive bowel sounds Palpation: soft Back/Spine no CVA tenderness Back/Spine Narrative: Patient has pain in the bilateral low back/paralumbar region but no CVA tenderness Extremity normal to inspection Neuro oriented x3, CN's II-XII intact bilaterally and no sensory deficits noted Sensorium / Orientation: alert Motor Exam: strength 5/5 throughout Psych mental status grossly normal Skin no rashes or lesions noted Skin Narrative: No soft tissue changes to suggest trauma or infection MDM MDM MDM Narrative Medical decision making narrative: Patient presented to the ER with stable vitals and reported urinary frequency and urgency with low back pain and recent diagnosis of UTI. General diagnosis is for polymicrobial or partially treated urinary tract infection versus pyelonephritis. There is also concern for potential complication or vaginal infection. The patient denies any vaginal discharge or concern for STD and so therefore no pelvic exam was performed and no STD testing ordered. Urine sample was obtained and is negative for . Patient did not have CVA pain so concern for pyelonephritis is low. Urine showed +1 bacteria but no white cells and there is mild contamination. At this time based on her young age and symptoms I will start her on antibiotics and the urine will be sent for culture. The patient understands that if her culture is negative she will need to follow-up with urology or urogynecology to discuss further causes of her symptoms. However at this time as she does not have findings of systemic infection there is no need for further workup and she is otherwise safe for discharge History & Record Review Discussion w/independent historian: Patient Lab Data Attestation: I reviewed the patient's lab results. Labs: Laboratory Results - last 24 hr 07/21/23 22:40 Urine Color Yellow Urine Clarity Clear Urine pH 6.0 Ur Specific [place] 1.025 Urine Protein 15 H Urine Glucose (UA) Normal Urine Ketones Negative Urine Occult Blood 10 H Urine Nitrite Negative Urine Bilirubin Negative Urine Urobilinogen 1 H Ur Leukocyte Esterase 25 H Urine RBC 0 SEEN Urine WBC 0-5 SEEN Ur Squamous Epith Cells 10-25 SEEN Urine Bacteria 1+ Urine Mucus 2+ Urine Test Negative Discharge Plan Triage Chief Complaint: Complaint ED Provider: Terell Drew Dx/Rx/DC Orders Clinical Impression: Dysuria Instructions: Dysuria, ED UTIs Women Prescriptions: New cephalexin 500 mg capsule 500 mg PO TID 7 Days Qty: 21 0RF phenazopyridine [Pyridium] 200 mg tablet 200 mg PO TID PRN (Reason: pain) 3 Days Qty: 9 0RF Primary Care Provider: Care Physician,No Primary Referrals: Vanessa Torres MD [Med Staff - Active Staff] - Care Physician,No Primary [Primary Care Provider] - Activity Restrictions/Additional Instructions: If your symptoms persist despite taking the antibiotic please follow-up with urology to discuss further testing regarding your urinary symptoms and return to the ER should you have any further concerns Disposition Disposition: Home, Self Care
[2023-07-22] MEDS: Cephalexin 250 MG Capsule 500 MG PO (00:55)
[2023-07-22] MEDS: Phenazopyridine 95 MG Tablet 190 MG PO (00:57)
== END 2023-07-22 01:00 | disposition home or self-care (01) ==
PROVIDERS: Emergency Provider Emergency Medicine; Visit Provider Emergency Medicine
DX: R30.0 Dysuria (principal)
CPT/HCPCS: 81001; 81025; 87086; 99282